=== PATIENT | female | born 1990 | race Caucasian/White ===

== ENCOUNTER 2019-02-20 10:35 | Outpatient (REF) | payer MEDICAID, SELFPAY ==
[2019-02-20 12:04] LABS: HCT 36.2 % (36.0-46.0); HGB 12.1 g/dL (12.0-15.5); Mean Corp. HGB Concentration 33.4 g/dL (32.0-36.0); Mean Corpuscular Hemoglobin 28.1 pg (27.0-33.0); Mean Corpuscular Volume 84.2 fL (80-95); Mean Platelet Volume 10.9 fL (8.0-11.0); Platelet Count 215 x1000/uL (130-400); RBC Distribution Width 11.9 % (11.7-14.6); White Blood Cell Count 5.05 k/cumm (4.4-10.8)
[2019-02-20 12:18] LABS: Anion Gap 7.4 mmol/L (3-11); BUN 14 mg/dL (7-18); CO2 27.6 mmol/L (21.0-32.0); CREATININE 0.72 mg/dL (0.55-1.02); Calcium 9.3 mg/dL (8.5-10.1); Chloride 104 mmol/L (98-107); Glucose 109 mg/dL (70-100); Potassium 4.3 mmol/L (3.5-5.1); Sodium 139 mmol/L (136-145); TSH (W/Ref FT4) 0.01 uIU/mL (0.358-3.74)
[2019-02-20 12:38] LABS: FREE T4 4.08 ng/dL (0.76-1.46)
[2019-02-21 16:32] LABS: Thyroglobulin Antibody 100 U/mL (<61); Thyroperoxidase Antibody 1025 U/mL (<61)
== END 2019-02-20 10:55 ==
LOC: NCHCN 10:35
PROVIDERS: PCP Nurse Practitioner Family; Visit Provider Nurse Practitioner Family
DX: R53.83 Other fatigue (principal)
CPT/HCPCS: 80048; 85027; 86376; 84439; 84443

== ENCOUNTER 2019-03-14 16:17 | Outpatient (REF) | payer MEDICAID, SELFPAY ==
[2019-03-14 22:08] LABS: T4 5.5 ug/dL (4.5-12.5); TSH (W/Ref FT4) 0.01 uIU/mL (0.358-3.74)
[2019-03-14 22:47] LABS: FREE T4 1.09 ng/dL (0.76-1.46)
[2019-03-15 17:10] LABS: T3, Total 111 ng/dl (97-169)
== END 2019-03-14 16:37 ==
LOC: NCHCN 16:17
PROVIDERS: PCP Nurse Practitioner Family; Visit Provider Nurse Practitioner Family
DX: E05.90 Thyrotoxicosis, unspecified without thyrotoxic crisis or storm (principal)
CPT/HCPCS: 84436; 84439; 84443; 84480

== ENCOUNTER 2019-04-10 21:53 | Outpatient (REF) | payer MEDICAID, SELFPAY ==
[2019-04-10 21:56] LABS: T4 1.4 ug/dL (4.5-12.5); TSH (W/Ref FT4) 33.47 uIU/mL (0.358-3.74)
[2019-04-10 22:21] LABS: FREE T4 0.52 ng/dL (0.76-1.46)
[2019-04-11 17:13] LABS: T3, Total 98 ng/dl (97-169)
== END 2019-04-10 22:13 ==
LOC: NCHCN 21:53
PROVIDERS: PCP Nurse Practitioner Family; Visit Provider Nurse Practitioner Family
DX: E05.90 Thyrotoxicosis, unspecified without thyrotoxic crisis or storm (principal)
CPT/HCPCS: 84436; 84439; 84443; 84480

== ENCOUNTER 2019-05-09 18:55 | Outpatient (REF) | payer MEDICAID, SELFPAY ==
[2019-05-09 21:45] LABS: TSH (W/Ref FT4) 11.47 uIU/mL (0.36-3.74)
[2019-05-09 23:00] LABS: FREE T4 0.81 ng/dL (0.76-1.46)
== END 2019-05-09 19:15 ==
LOC: NCHCN 18:55
PROVIDERS: PCP Nurse Practitioner Family; Visit Provider Nurse Practitioner Family
DX: E05.90 Thyrotoxicosis, unspecified without thyrotoxic crisis or storm (principal)
CPT/HCPCS: 84439; 84443

== ENCOUNTER 2019-06-28 16:31 | Outpatient (REF) | payer BC, SELFPAY ==
[2019-06-28 21:07] LABS: TSH 3.89 uIU/mL (0.36-3.74)
[2019-07-01 07:32] LABS: Vitamin D 25 Total 21.2 ng/ml (30-100)
== END 2019-06-28 16:51 ==
LOC: NCHCN 16:31
PROVIDERS: PCP Nurse Practitioner Family; Visit Provider Nurse Practitioner Family
DX: E05.90 Thyrotoxicosis, unspecified without thyrotoxic crisis or storm (principal); R53.83 Other fatigue
CPT/HCPCS: 82306; 84443

== ENCOUNTER 2020-02-25 17:53 | Outpatient (REF) | payer BC, SELFPAY ==
[2020-02-25 20:50] LABS: FREE T4 0.97 ng/dL (0.76-1.46); TSH 5.69 uIU/mL (0.36-3.74)
[2020-02-26 18:04] LABS: T3, Total 104 ng/dL (97-169)
[2020-02-27 06:25] LABS: Vitamin D 25 Total 22.2 ng/ml (30-100)
== END 2020-02-25 18:13 ==
LOC: NCHCN 17:53
PROVIDERS: PCP Nurse Practitioner Family; Visit Provider Nurse Practitioner Family
DX: E05.90 Thyrotoxicosis, unspecified without thyrotoxic crisis or storm (principal); R53.83 Other fatigue
CPT/HCPCS: 82306; 84439; 84443; 84480

== ENCOUNTER 2020-08-25 16:31 | Outpatient (REF) | payer BC, SELFPAY ==
[2020-08-25 22:37] LABS: FREE T4 1.18 ng/dL (0.76-1.46); TSH 2.88 uIU/mL (0.36-3.74)
[2020-08-26 16:58] LABS: T3, Total 117 ng/dL (97-169)
[2020-08-27 04:45] LABS: Vitamin D 25 Total 22.5 ng/ml (30-100)
== END 2020-08-25 16:51 ==
LOC: NCHCN 16:31
PROVIDERS: PCP Nurse Practitioner Family; Visit Provider Nurse Practitioner Family
DX: E05.90 Thyrotoxicosis, unspecified without thyrotoxic crisis or storm (principal)
CPT/HCPCS: 82306; 84439; 84443; 84480

== ENCOUNTER 2022-04-21 12:13 | Emergency (ER) | payer BC, SELFPAY ==
[2022-04-21 12:20] VITALS: BP 133/74; PULSE 79; RESP 18; O2SAT 100
[2022-04-21] MEDS: Ibuprofen 600 MG TAB PO (12:55)
--- NOTE | 2022-04-21 13:05 | DI.RAD_ITS ---
Exam(s) XR KNEE LT 3V AP,LAT,JOSY EXAM: XR KNEE LT 3V AP,LAT,JOSY CLINICAL HISTORY: left knee pain. TECHNIQUE: 2D digital imaging was performed of the left knee. Three images were obtained. AP, late ral and PA tunnel views were obtained. COMPARISON: No exams were available for comparison FINDINGS: BONES: No acute fracture is present. No bony destructive lesion is seen. JOINTS: The knee is normally aligned. No joint effusion is seen. SOFT TISSUE: Normal. IMPRESSION: Normal radiographs of the left knee. DATA REPOSITORY: RADIATION DOSE DELIVERED:
--- NOTE | 2022-04-21 13:05 | DI.RAD_ITS ---
Exam(s) XR ANKLE LT COMPLETE EXAM: XR ANKLE LT COMPLETE CLINICAL HISTORY: twisted ankle/pain/swell TECHNIQUE: 2D digital imaging was performed of the left ankle. Three images were obtained. AP, lat eral and oblique views were obtained. COMPARISON: No exams were available for comparison FINDINGS: BONES: No acute fracture is present. No bony destructive lesion is seen. JOINTS:The ankle mortise is normally aligned. SOFT TISSUE: Soft tissue swelling about the ankle laterally. IMPRESSION: 1. Lateral soft tissue swelling. 2. No acute fracture or dislocation. DATA REPOSITORY: RADIATION DOSE DELIVERED:
--- NOTE | 2022-04-21 13:44 | ED.GENADUL_ITS ---
Discharge Plan Disposition Patient Disposition: HOME Condition: Stable Discharge Details Clinical Impression: Right ankle strain Primary Care Provider: Kristina Zurita ED Provider: Mary Sorenson Home Meds and New Rx's Prescriptions: Continued levothyroxine 50 mcg tablet 1 tab PO DAILY Label Comments: TAKE ONE TABLET BY MOUTH EVERY DAY Discharge Instructions Additional Instructions: Take ibuprofen and Tylenol as needed for pain Use boot as needed for support Repeat x-ray in 1 week with persistent pain Referrals: Kristina Zurita [Primary Care Provider] - Medical Decision Making Patient appears well X-ray as interpreted by radiology as negative and reviewed by me Placed in the for comfort Repeat films in 1 week for persistent pain recommended Return precautions discussed and patient expressed understanding Medical Records Medical records reviewed: Yes I reviewed the patient's medical records. Lab Data Lab results reviewed: Yes I reviewed the patient's lab results. HPI General Date/Time Provider Initiated Documentation: 04/21/22 12:26 . HPI Narrative: This 32-year-old female presents with left ankle pain after twisting injury. States she has pain with ambulation. She also reports tenderness in the knee after banging it 4 days ago. She denies chance of . She denies any additional complaints at this time. Pain exacerbated with ambulation. Describes sharp pain. Related Data Home Medications Medication Instructions Recorded Confirmed levothyroxine 50 mcg tablet 1 tab PO DAILY 04/21/22 04/21/22 Allergies Allergy/AdvReac Type Severity Reaction Status Date / Time Penicillins Allergy Hives Unverified 04/21/22 12:22 General Stated Complaint: Orthopedic WALE: 4 Review of Systems All systems reviewed & are unremarkable except as noted in HPI and below PFSH All Active Problems (Updated 04/21/22 @ 13:37 by EREN Self) Right ankle strain (Acute) Social History Smoking/Tobacco Use Status: Never Smoking risk assessment performed?: Yes Alcohol Intake: never Drug use: Never Substance use type: does not use Do you feel safe at home: Yes Do you feel safe in your relationship?: Yes Exam Const General: cooperative and comfortable Orientation: alert and oriented x3 Extrem Other: Lateral soft tissue swelling, neurovascularly intact, tenderness to patient's left knee from prior injury, no tib-fib tenderness Neurovascularly intact Course Vital Signs Vital signs: Vital Signs Pulse 79 04/21/22 12:20 Respiratory Rate 18 04/21/22 12:20 Blood Pressure 133/74 04/21/22 12:20 Pulse Oximetry 100 04/21/22 12:20 Pulse 79 04/21/22 12:20 Respiratory Rate 18 04/21/22 12:20 Respiratory Effort Non-Labored 04/21/22 12:23 Blood Pressure 133/74 04/21/22 12:20 Blood Pressure Position Sitting 04/21/22 12:20 Pulse Oximetry 100 04/21/22 12:20 Oxygen Delivery Method Room Air 04/21/22 12:20 Oxygen Flow Rate 0 04/21/22 12:20 Pain Level 5 04/21/22 12:20
== END 2022-04-21 13:48 | disposition home or self-care (01) ==
PROVIDERS: Emergency Provider Physician Assistant; PCP Nurse Practitioner Family
DX: S93.402A Sprain of unspecified ligament of left ankle, initial encounter (principal); X50.1XXA Overexertion from prolonged static or awkward postures, initial encounter
CPT/HCPCS: 73562; 99284; 73610; 99282

== ENCOUNTER 2022-10-25 15:17 | Outpatient (REF) | payer BC, SELFPAY ==
[2022-10-25 14:52] LABS: FREE T4 1.26 ng/dL (0.76-1.46); TSH 4.31 uIU/mL (0.36-3.74)
== END 2022-10-25 15:18 | disposition home or self-care (01) ==
LOC: NCHCN 15:17
PROVIDERS: PCP Nurse Practitioner Family; Visit Provider Nurse Practitioner Family
DX: E06.3 Autoimmune thyroiditis (principal)
CPT/HCPCS: 84439; 84443

== ENCOUNTER 2023-01-31 18:29 | Outpatient (REF) | payer BC, SELFPAY | END 2023-01-31 18:30 | disposition home or self-care (01) | LOC: NCHCN 18:29 | PROVIDERS: PCP Nurse Practitioner Family; Visit Provider Nurse Practitioner Family | DX: E03.9 Hypothyroidism, unspecified (principal) | CPT/HCPCS: 84443 ==

== ENCOUNTER 2024-02-07 08:19 | Outpatient (REF) | payer BC, SELFPAY ==
[2024-02-07 15:00] LABS: TSH (W/Ref FT4) 0.37 uIU/mL (0.36-3.74)
== END 2024-02-07 08:20 | disposition home or self-care (01) ==
LOC: NCHCN 08:19
PROVIDERS: PCP Nurse Practitioner Family; Visit Provider Nurse Practitioner Family
DX: E03.9 Hypothyroidism, unspecified (principal)
CPT/HCPCS: 84443

== ENCOUNTER 2024-05-16 15:13 | Outpatient (REF) | payer BC, SELFPAY ==
--- OUTSIDE RECORDS SUMMARY | 2024-05-16 15:27 | XMS_ITS | Clinical Summary ---
Author Organization [facility] Address [address] [place] [address] Care Team Providers Care Laboratory Miller Name Role Phone Unavailable Primary Care Provider Unavailabl e Social History Tobacco Use Types Packs/Day Years Used Date Smoking Tobacco: Never Assessed Interpersonal Safety Answer Date Record ed Physically Hurt Never 08/18/2020 Verbally Threaten Not on file 08/18/2020 Sex and Gender Information Value Date Recorded Sex Assigned at Not on file Gender Identity Not on file Sexual Orientation Not on file Plan of Treatment Health Maintenance Due Date Last Done Comments Hepatitis C Screen 1990 Hepatitis B Vaccine (1 of 3 - 19+ 3-dose series) 02/06 COVID-19 Vaccine (2022- season) 2023
--- OUTSIDE RECORDS SUMMARY | 2024-05-16 15:27 | XMS_ITS | Continuity of Care Document ---
Author Organization [facility] Address [address] [place] [address] Care Team Providers Care Desizing Machine Offbearer Name Role Phone RAZA MILLS Primary Care Physician Encounter [facility] NBR [id number] Date(s): 03/11/24 - 03/11/24 [facility] [address] [place] [address]- [place] Encounter Diagnosis Encounter for routine gynecological examination with Papanicolaou smear of cervix(Discharge Diagnosis) - 03/11/24 Discharge Disposition: Home or Self Care Attending Physician: Serenity Ng APRN Referring Physician: RAZA MILLS Allergies, Adverse Reactions, Alerts Substance Reaction Severity Status penicillin V potassium Eruption Moderate Activ e Assessment and Plan Extracted from: Title:[facility]-Office Visit Note Author:Serenity Ng APRN Date:03/11/24 1.??Encounter for routine gy necological examination with Papanicolaou smear of cervix??Z01.419 ??1. PAP smear obtained today, I will call her with results.?2. She will return in a year for well woman visit.?? Ordered: Outside Lab Request, 03/11/24 16:11:00 EDT, Stop date 03/11/24 16:11:00 EDT, [facility]-Pap + Pap dependent HPV, Encounter for routine gynecological examination with Papanicolaou smear of cervix ?? Ms. Aguilar is a very pleasant 34 y.o. lady presenting to the clinic today for well woman visit.?? Future Appointments Medications levothyroxine 50 mcg (0.05 mg) oral tablet 50 mcg = 1 tab, Oral, Daily, # 30 tab, 0 Refill(s) Start Date: 1/31/23 Status: Ordered levothyroxine 75 mcg (0.075 mg) oral tablet 75 mcg = 1 tab, Oral, Daily, # 30 tab, 0 Refill(s) Start Date: 03/11/24 Status: Ordered Problem List Condition Confirmation Course Effective Dates Status Health St [facility] Informant Asthma 1 Confirmed Active Hypothyroid Confirmed Active 1as a child Procedures Procedure Date Related Diagnosis Body Site Status Extraction of wisdom teeth Completed Vital Signs Most recent to oldest [Reference Range]: 1 Blood Pressure [90-140/60-90 mmHg] 114/7 2mmHg (03/11/24 3:43 PM) Mean Arterial Pressure, Cuff [65-140 mmH g] 86 mmHg (03/11/24 3:43 PM) Weight 94.1 kg (03/11/24 3:43 PM) Weight Measured (lbs) 207.455 lb (03/11/24 3:43 PM) Weight Dosing 94.100 kg (03/11/24 3:43 PM) Coyote Body Weight Calculated 63.9 kg (03/11/24 3:43 PM) Height 172.72 cm (03/11/24 3:43 PM) Height/Length Measured (inches) 68 inch (03/11/24 3:43 PM) BSA Measured 2.12 m2 (03/11/24 3:43 PM) Body Mass Index 31.54 kg/m2 (03/11/24 3:43 PM) Social History Social History Type Response Smoking Status Smoking tobacco use: Never tobacco user;Never entered on: 03/11/24 Sex Female Physician Outpatient Note * Serenity Ng, ASSET ADMINISTRATOR: PERFORM Event Display: Office Clinic Note Physician Authored Date: [id number] SUKUMAR AGUILAR :1990 Age:34 years Sex:Female Visit Date:03/11/2024 Primary Care Physician: RAZA MILLS 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 Last Pap 01/08/2019-neg, neg HPV. Vasectomy for control. Periods every 28 days, lasting 4 days, normal flow. LMP 03/05/2024. History of Present Illness Ms. Aguilar is a pleasant 34 y.o. lady who presents to the [facility] clinic today for SYSTEM TECHNOLOGIST well woman visit. She was last seen by Adina??Brooke??on 07/21/21 for a well woman visit. Her last PAP was in 2019 and was negative for HPV.? She reports her monthly??cycles are regular, arriving every 28 days with a couple days of heavy flow. Typically her periods last 4-5 days. She describes breast tenderness and mood changes surroundingthe time of her menses. She reports noting some uncomfortableness during sexual intercourse with deep penetration. The??discomfort is position dependent. She thinks its happening when it is close to the start of her menses, but she will keep track. She denies post coital bleeding. Typically, the couple does not need lubrication. She is and the couple is in a monogamous relationship. They depend on vasectomy for contraception.? She reports normal vaginal discharge.? She takes a multi vitamin and an additional Vitamin D supplement. She reports her diet as being fairly healthy. She finds it difficult to get into a routine of regular exercise. 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 She has 2 children and 2 step children that keep her active.? She has a family history of breast cancer with her maternal grandmother the one affected at age 48.She is still alive and doing well. Sukumar tells me today, her pcp recommended first mammography at age 39. She performs monthly self breast exams.? She has a family history of melanoma with her mom being the one affected. Sukumar has full body skin checks every 5 years with dermatology at [facility].? Her paternal grandmother suffered from pancreatic cancer, paternal grandfather had dementia.?? Review of Systems Constitutional:?No??fevers,?No??chills,?No??sweats Eye:?No??recent visual problems ENT:?No??ear pain,?No??nasal congestion,?No??sore throat Respiratory:?No??shortness of breath,?No??cough Cardiovascular:?No??Chest pain,?No??palpitations,?No??syncope Gastrointestinal:?No??nausea,??No??vomiting,?No??diarrhea Genitourinary:?No??hematuria Da/Lymph:?No??bruising tendency,?No??swollen lymph glands Endocrine:?Positive for??hypothyroidism??No??excessive hunger, excessive thirst Musculoskeletal:??No??back pain,??No??neck pain,??No??joint pain,??No??muscle pain,??No??decreased range of motion Integumentary:?No??rash,?No??pruritus,?No??abrasions Neurologic: Alert & oriented X 4 Psychiatric:?No??anxiety,?No??depression Physical Exam Vitals & Measurements BP:??114/72?? HT:??172.72??cm?? WT:??94.1??kg?? BMI:??31.54?? BSA:??2.12?? GENERAL APPEARANCE:??alert and oriented in NAD; appropriate with good affect.??.?? NEURO:??grossly intact.?? HEENT:??NCAT; EOMI.?? NECK:??supple.?? CHEST:??symmetric excursions.?? BREAST:?? Nipples bilaterally appear normal without discharge, no palpable masses; bilateral axillas are free of any worrisome lymphadenopathy.?? ABDOMEN:??soft, NT, ND.?? MUSCULOSKELETAL:??good gait and station.?? EXTREMITIES:??no c/c/e??.?? BACK/SPINE:??no CVAT.?? :??deferred. Vulva:??labia majora??and minora bilaterally are??normal in appearance. Introitus is normal in external appearance without??mass??or atrophy. Bladder: urethra normal, no bladder prolapse Vagina: normal pink rugated mucosa, normal vaginal discharge, adequate pelvic support Cervix: normal appearance, no lesions or lacerations Uterus: normal size, shape, non tender, mobile, no prolapse Adnexa: no masses or tenderness Perineum/Anus: no skin changes or hemorrhoids ?? Assessment/Plan 1.??Encounter for routine gynecological examination with Papanicolaou smear of cervix??Z01.419 ??1. PAP smear obtained today, I will call her with results.?2. She will return in a year for well woman visit.?? Ordered: Outside Lab Request, 03/11/24 16:11:00 EDT, Stop date 03/11/24 16:11:00 EDT, [facility]Path-Pap + Pap dependent HPV, Encounter for routine gynecological examination with Papanicolaou smear of cervix ?? Ms. Aguilar is a very pleasant 34 y.o. lady presenting to the clinic today for well woman visit.?? Problem List/Past Medical History Ongoing Asthma Hypothyroid Historical Procedure/Surgical History ???Extraction of wisdom teeth Medications levothyroxine 50 mcg (0.05 mg) oral tablet, 50 mcg= 1 tab, Oral, Daily levothyroxine 75 mcg (0.075 mg) oral tablet, 75 mcg= 1 tab, Oral, Daily Allergies penicillin V potassium??(Eruption) Social History Alcohol Current- Comments: rare Electronic Cigarette/Vaping Electronic Cigarette Use: Never. 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 Home/Environment Lives with Children, Spouse. Living situation: Home/Independent. Sexual Sexually active: Yes. Substance Use Never Tobacco Never tobacco user Tobacco Use:. Never Smokeless Tobacco use:. Family History Alive and well: Father. Alzheimer's disease: Grandfather (P). Breast cancer: Grandmother (M). Cancer: Mother and Grandmother (P). Diabetes mellitus: Grandfather (M). Thyroid dysfunction: Mother. Family Member(s): ?? GPARENT, at age: Unknown. Cause of : Family Member(s): ?? GPARENT, at age: Unknown. Cause of : Electronically Signed on 03/12/2024 06:35 EDT Serenity Ng APRN Patient Care team information Care Team Personnel Name: RAZA MILLS Position: No Access Member Role: Primary Care Physician Address: Address: [place] [id number]- Care Team Related Persons Name: JERZY AGUILAR Address: Home [address], [place] [id number] [facility]
--- OUTSIDE RECORDS SUMMARY | 2024-05-16 15:27 | XMS_ITS | Encounter Summary ---
[place] [address] Care Team Providers Care Making Machine Catcher Name Role Phone Kristina Zurita APRN Primary Care Provider [phone] Reason for Referral * Consultation (Routine) - Closed Specialty Diagnoses / Procedures Referred By Suresh rangel Referred To Contact Dermatology Diagnoses Routine general medical examination at a health care facility Melba Ayala APRN [address] [place] [address] [facility] Dermatology [address] [place] [address] Referral ID Status Reason Start Date Expiration Date V isits Requested Visits Authorized [id number] Closed Consult, Test & Treat PCP Updated and/or Approved 02/02/2023 02/02/2024 6 6 Encounter Details Date Type Department Care Team (Latest Contact Info) Description 02/02/2023 Transcribe Orders eDH Incoming Referrals [phone] Melba Ayala APRN [address] [place], [place] [id number] Routine general medical examination at a health care facility Social History Tobacco Use Types Packs/Day Years Used Date Smoking Tobacco: Never Smokeless Tobacco: Never Sex and Gender Information Value Date Recorded Sex Assigned at Not on file Gender Identity Not on file Sexual Orientation Not on file documented as of this encounter Plan of Treatment Scheduled Referrals Name Type Priority Associated Diagnoses Orde r Schedule Referral to Dermatology Outpatient Referral Routine Routine general medical examination at a health care facility Ordered: 02/02/2023 documented as of this encounter Visit Diagnoses Diagnosis Routine general medical examination at a health care facility documented in this encounter Care Teams Making Machine Catcher Relationship Specialty Start Date End Date Kristina Zurita APRN [address] [place] [address] PCP - General Family Medicine 10/06/17 documented as of this encounter
--- OUTSIDE RECORDS SUMMARY | 2024-05-16 15:27 | XMS_ITS | Encounter Summary ---
Author Organization [facility] [place] [address] Care Team Providers Care Bag Liner Name Role Phone Kristina Zurita APRN Primary Care Provider [phone] Encounter Details Date Type Department Care Team (Late st Contact Info) Description 10/19/2022 3:00 PM EST Office [place] [id number] Gisell Lai MD [facility] [place] [address] Rowena's thyroiditis Social History Tobacco Use Types Packs/Day Years Used Date Smoking Tobacco: Never Smokeless Tobacco: Never Sex and Gender Information Value Date Recorded Sex Assigned at Not on file Gender Identity Not on file Sexual Orientation Not on file documented as of this encounter Last Filed Vital Signs Vital Sign Reading Time Taken Comments Blood Pressure 96/63 10/19/2022 3:18 PM EST Pulse 75 10/19/2022 3:18 PM EST Temperature 36.9 ??C (98.5 ??F) 10/19/2022 3:18 PM ES T Respiratory Rate 20 10/19/2022 3:18 PM EST Oxygen Saturation 98% 10/19/2022 3:18 PM EST Inhaled Oxygen Concentration - - Weight 94.4 kg (208 lb 3.2 oz) 10/19/2022 3:18 P M EST Height 175.3 cm (5' 9) 10/19/2022 3:18 PM EST Body Mass Index 30.75 10/19/2022 3:18 PM EST documented in this encounter Progress Notes * Gisell Lai MD - 10/19/2022 3:00 PM EST Endocrinology Follow up visit Date of Visit: 10/19/22 Patient: Name: Yesenia Aguilar : 1990 Yesenia Aguilar was seen in consultation in the Endocrine clinic at the request of Dr. Kristina Zurita APRN for: hypothyroidism. Patient's previous record as are the lab results are reviewed. HISTORY OF PRESENT ILLNESS: Yesenia Aguilar??is a 32 y/o F??with no significant medical history who was diagnosed with??post thyroiditis in January 2019, was treated with Methimazole for about a month when she became??euthyroid, and medication was discontinued. She was first seen at this office in April of [address] Bauer, TFT??during that visit??revealed hypothyroid state and she was prescribed Levothyroxine 50 mcg. However, she never started taking the medication and repeat TFT in June showed significantly improved TSH (9.98--->3.89) without treatment and it was decided to hold treatment with the Levothyroxine. She had elevated??TPO and TG antibodies??on initial??work up. During her follow up appointmentin July 2019 she reported fatigue and hair loss, TSH was mildly elevated. Due to positive TPO and TG antibodies, she was started her on Levothyroxine 25 mcg daily. I then saw her for the first time in 07/2021, and at that time labs showed elevated TSH despite free T4 at the normal range. I incre ased the Levothyroxine dose from 25mcg daily to 50mcg daily. Interim events: Today she reports she is not feeling so well. She is not feeling like herself for the past few months, and her mood is out of control. She complaints of fatigue and has a difficult time falling asleep. She is frequently woken up at night by her children. She gained approximately 15lbs within the past year. She denies any appetite changes, but does not feel full after a meal. Denies constipation, diarrhea. Denies dry skin, some hair falling. Denies heart palpitations and tremors. She is compliant with the Levothyroxine 50mcg daily, takes it every morning on an emty stomach and waits hours for breakfast. Misses one or two doses monthly. Menstrual periods are regular, not trying to conceive at this time. Family history is significant for??Rowena thyroiditis in mother.? REVIEW OF SYSTEMS: as per HPI, all other systems reviewed and negative Patient Active Problem List Diagnosis Code ??? Hyperthyroidism E05.90 Family Hx: Hx of pancreatic cancel on paternal grandmother Maternal grandmother with breast cancer Maternal grandfather with cardiac disease Allergies Allergen Reactions ??? Penicillins Current Outpatient Medications on File Prior to Visit Medication Sig Dispense Refill ??? levothyroxine (Synthroid) 50 mcg Tablet TAKE ONE TABLET BY MOUTH EVERY DAY 90 tablet 0 ??? ergocalciferoL, vitamin D2, (vitamin D2) 50,000 unit Capsule Take 1 capsule by mouth once a week. (Patient not taking: Reported on 08/24/2021) 12 capsule 0 ??? cholecalciferol, Vitamin D3, 25 mcg (1,000 unit) Capsule Take 1 capsule by mouth daily. (Patient not taking: Reported on 10/19/2022) 90 capsule 3 No current facility-administered medications on file prior to visit. Social History Socioeconomic History ??? Marital status: Spouse name: Not on file ??? Number of children: Not on file ??? Years of education: Not on file ??? Highest education level: Not on file Occupational History ??? Not on file Tobacco Use ??? Smoking status: Never ??? Smokeless tobacco: Never Vaping Use ??? Vaping Use: Never used Substance and Sexual Activity ??? Alcohol use: Not on file ??? Drug use: Not on file ??? Sexual activity: Not on file Other Topics Concern ??? Not on file Social History Narrative ??? 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 GENERAL: Well nourished, well hydrated, in no distress, oriented x 3 EYES: no thyroid eye signs, JUANCHO NECK: supple, slightly enlarged goiter, no bruit, no tenderness, no adenopathies RS: breathing comfortably in room air ABD: soft, non tender, non distended EXTREMITIES: No clubbing, no edema, no cyanosis, normal nails NEURO: normal strength, no tremor, normal reflexes LABS: Results for YESENIA AGUILAR ( ) as of 08/24/2021 19:00 Ref. Range 08/24/2021 10:55 T3, Total Latest Ref Range: 75 - 170 ng/dL 109 Free T4 Latest Ref Range: 0.93 - 1.70 ng/dL 1.29 TSH Latest Ref Range: 0.27 - 4.20 mcIU/mL 4.70 (H) 08/25/2020 TSH 2.88 FT4 1.18 TT3 117 Vit D: 22.5 DIAGNOSIS: Hypothyroidism, due to Rowena's thyroiditis. PLAN: Patient is symptomatic on the current dose of Levothyroxine 50mcg daily. She reports a 15lbs weightgain within the last year, and I wonder if she needs a higher dose of this medication given the weight gain. Today we will repeat TFTs and adjust Levothyroxine accordingly. I also discussed with patient if she prefers continuing follow up care with her PCP, especially because she needs to travel over 1 hourfor our visits. Patient feels comfortable continuing care with PCP, and knows that she can always come back to this clinic as needed. Her thyroid function should be checked once yearly, with goal to have TSH and free T4 at the normal range. Yesenia will get the labs at her PCP's office. I asked her to have lab results faxed over to us. Thank you for allowing me to participate in the care of this very pleasant patient. Case d/w Dr. Alexis Lai Endocrinology Fellow Pager [phone] cc: Kristina Zurita APRN * Jose Montero MD - 10/19/2022 3:00 PM EST I have reviewed Dr Lai's history and I agree with the details as written. The assessment and plan were formulated in discussion with me and I agree with them as documented. Orders Placed This Encounter Procedures ??? T4, free ??? TSH Jose Montero MD Maintenance Supervisorcable placer Endocrinology Section [facility] documented in this encounter Miscellaneous Notes * Addendum Note - Jose Montero MD - 10/19/2022 3:00 PM ESTAddended by: JOSE MONTERO on: 10/22/2022 04:48 PM Modules accepted: Level of Service documented in this encounter Plan of Treatment Not on file documented as of this encounter Visit Diagnoses Diagnosis Rowena's thyroiditis Chronic lymphocytic thyroiditis documented in this encounter Care Teams Bag Liner Relationship Specialty Start Date End Date Kristina Zurita APRN [address] [place] [address] PCP - General Family Medicine 10/06/17 documented as of this encounter
--- OUTSIDE RECORDS SUMMARY | 2024-05-16 15:27 | XMS_ITS | Clinical Summary ---
[place] [address] Care Team Providers Care Crocodile Farmer Name Role Phone Kristina Zurita APRN Primary Care Provider [phone] [phone] Allergies Active Allergy Reactions Criticality Noted Date Comments Penicillins 04/18/2018 Medications Medication Sig Dispensed Refills Start Date End Date Status cholecalciferol, Vitamin D3, 25 mcg (1,000 unit) CapsuleIndications: Vitamin D deficiency Take 1 capsule by mouth daily. 90 capsule 3 03/05/2020 Active Additional Information Patient not taking.Reported on 10/19/2022 ergocalciferoL, vitamin D2, (vitamin D2) 50,000 unit CapsuleIndications: Vitamin D deficiency Take 1 capsule by mouth once a week. 12 capsule 08/28/2020 Active Additional Information Patient not taking.Reported on 08/24/2021 levothyroxine (Synthroid) 75 mcg TabletIndications:H ashimoto's thyroiditis Take 1 tablet by mouth daily. 90 tablet 3 10/28/2022 Active Active Problems No known active problems Resolved Problems Problem Noted Date Diagnosed Date Resolved Date Hyperthyroidism 05/15/2019 10/22/2022 Social History Tobacco Use Types Packs/Day Years Used Date Smoking Tobacco: Never Smokeless Tobacco: Never Sex and Gender Information Value Date Recorded Sex Assigned at Not on file Gender Identity Not on file Sexual Orientation Not on file Last Filed Vital Signs Vital Sign Reading [...] Mass Index 30.75 10/19/2022 3:18 PM EST Plan of Treatment Health Maintenance Due Date Last Done Comments HIV screen 2009 Hepatitis C Screening 2009 Lipid Screening 2009 Hepatitis B vaccine (0-59 yrs) (1) 2010 Tdap adult 2010 Tetanus vaccine 2010 HPV test 2021 PAP Smear 2021 Covid-19 Vaccine ( - 2022-24 season) 2023 Influenza (Flu) vaccine (1 o f 1 - Influenza standard series) 05/26/2024 Care Teams Crocodile Farmer Relationship Specialty Start Date End Date Kristina Zurita APRN [address] [place] [address] PCP - General Family Medicine 10/06/17
--- OUTSIDE RECORDS SUMMARY | 2024-05-16 15:27 | XMS_ITS | Encounter Summary ---
[place] [address] Care Team Providers Care Field Investigator Name Role Phone Kristina Zurita APRN Primary Care Provider +1 [phone] Encounter Details Date Type Department Care Team (Late st Contact Info) Description 08/24/2021 Telephone [place] [phone] Brooke Headley Social History Tobacco Use Types Packs/Day Years Used Date Smoking Tobacco: Never Smokeless Tobacco: Never Sex and Gender Information Value Date Recorded Sex Assigned at Not on file Gender Identity Not on file Sexual Orientation Not on file documented as of this encounter Miscellaneous Notes * Telephone Encounter - Char Acosta - 08/26/2021 12:12 PM EST Pt calling back about this stating she is returning your call. Please call pt back at [phone] * Telephone Encounter - Brooke Headley - 08/24/2021 3:32 PM EST Patient returning your call. Will keep phone on her [phone] best number to reach her at documented in this encounter Plan of Treatment Not on file documented as of this encounter Visit Diagnoses Not on filedocumented in this encounter Care Teams Field Investigator Relationship Specialty Start Date End Date Kristina Zurita APRN [address] [place] [address] PCP - General Family Medicine 10/06/17 documented as of this encounter
--- OUTSIDE RECORDS SUMMARY | 2024-05-16 15:27 | XMS_ITS | Referral Summary ---
Author Organization [facility] Address [address] [place] [address] Care Team Providers Care Spray Pilot Name Role Phone Unavailable Primary Care Provider [...] Orientation Not on file Plan of Treatment Not on file
--- OUTSIDE RECORDS SUMMARY | 2024-05-16 15:27 | XMS_ITS | Encounter Summary ---
Author Organization [facility]ly [facility] Address [facility] [place] [address] Care Team Providers Care Centrifuge Operator Name Role Phone Kristina Zurita APRN Primary Care Provider [phone] [phone] Reason for Visit * Reason Comments Skin Check * Consultation (Routine) - Closed Specialty Diagnoses / Procedures Referred By Suresh rangel Referred To Contact Dermatology Diagnoses Routine general medical examination at a health care facility Melba Ayala APRN [address] [place] [address] [facility] Dermatology [address] [place] [address] Referral ID Status Reason Start Date Expiration Date V isits Requested Visits Authorized [id number] Closed Consult, Test & Treat PCP Updated and/or Approved 02/02/2023 02/02/2024 6 6 Encounter Details Date Type Department Care Team (Late st Contact Info) Description 05/09/2023 3:40 PM EDT Office Visit Dermatology at [facility] [address] [place] [address] Marni Andersen MD [facility] [address] LYNDA [place] [address] Seborrheic keratoses; Multiple benign melanocytic nevi of upper and lower extremities and trunk; Lentigines; Redmond angioma; Screening for malignant neoplasm of skin Social History Tobacco Use Types Packs/Day Years Used Date Smoking Tobacco: Never Smokeless Tobacco: Never Sex and Gender Information Value Date Recorded Sex Assigned at Not on file Gender Identity Not on file Sexual Orientation Not on file documented as of this encounter Progress Notes * Marni Andersen MD - 05/09/2023 3:40 PM EDT Images from the original note were not included. DEPARTMENT OF DERMATOLOGY Medical Dermatology Clinic Note Provider: Marni Andersen MD Patient's preferred name Yesenia Preferred contact method for results [x]Phone: Cell []myD-H []Letter Detailed phone message OK? Yes Are there any other people with whom we may discuss your care? 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 Patient is referred to the clinic at the request of Melba Ayala for a full skin exam. She notes that she has a fair amount of sun exposure at her job but states that she does the best to wear hats and use sunscreen. To her knowledge she does not have any family history of melanoma. Review of Systems: General: Feeling well. Skin: No other skin concerns. Medications: Reviewed in eD-H Allergies: Reviewed in eD-H Skin Examination: Full skin examination: Patient asked to undress to their comfort level. Verbalized that the provider???s preference is that the patient remove all clothing and that the provider will not examine areas patient elects to keep covered. Patient elects to keep underwear on and have the following examined: scalp, hair, face, ears, neck, chest, axillae, abdomen, back, and upper and lower extremities. Genitalia and buttocks were not examined. Assessment/Plan 1. Seborrheic Keratoses - Stuck on, waxy papules on the trunk and extremities - Benign. No treatment needed. 2. Lentigines - Scattered light-brown, evenly pigmented, well-demarcated macules on sun-exposed areas of the trunk and extremities. - No worrisome pigmented lesions. Discussed benign nature of lesions and provided reassurance. Willcontinue to monitor. 3. Benign Nevi - Scattered light to medium brown macules on the trunk and extremities with reassuring pigment pattern on dermoscopy. - Reassured of benign appearance on exam today. - Advised patient to watch for any new or changing lesions. - Reviewed warning signs of skin cancer. 4. Redmond Angioma(s) - 0.2-0.4cm bright red, well-demarcated papule(s). - Benign. No treatment needed. Other: Sun protection discussed (protective clothing and SPF30+ broad-spectrum sunscreen) RTC: 2 years for FSE []Note routed to marketing secretary [x]Recall placed in scheduling system []Appointment scheduled at checkout Scribe attestation: Lydia Senior [facility] has performed the documentation for this encounter in the presence of and acting as a scribe for Marni Andersen MD. I performed the above scribed service and agree with the accuracy of the documentation in this encounter. Reviewed and signed by: Marni Andersen MD Dermatology [facility] Patient seen and evaluated with staff lithopone charger: Nancy Francisco MD Department of Dermatology [facility] * Nancy Francisco MD - 05/09/2023 3:40 PM EDT I was the supervising physician working with dermatology resident Dr. Andersen in the dermatology clinic during this patient visit. The level of resident supervision for this patient visit was indirect supervision with direct supervision immediately available. (definition: [facility] Policy Statement on Graduate Medical Education, Supervision of Graduate Medical Trainees) I was immediately available to Dr. Andersen for questions and discussion regarding this visit. I have reviewed the encounter note details and level of service. NANCY FRANCISCO MD Staff Physician documented in this encounter Plan of Treatment Scheduled Referrals Name Type Priority Associated Diagnoses Orde r Schedule Referral to Dermatology Outpatient Referral Routine Routine general medical examination at a [facility] facility Ordered: 02/02/2023 documented as of this encounter Visit Diagnoses Diagnosis Seborrheic keratoses Multiple benign melanocytic nevi of upper and lower extremities and trunk Lentigines Other dyschromia Redmond angioma Nevus, non-neoplastic Screening for malignant neoplasm of skin Screening for malignant neoplasm of the skin documented in this encounter Care Teams Centrifuge Operator Relationship Specialty Start Date End Date Kristina Zurita APRN [address] [place] [address] PCP - General Family Medicine 10/06/17 documented as of this encounter
--- OUTSIDE RECORDS SUMMARY | 2024-05-16 15:27 | XMS_ITS | Encounter Summary ---
[place] [address] Care Team Providers Care Recreation Specialist Name Role Phone Kristina Zurita APRN Primary Care Provider [phone] [phone] Encounter Details Date Type Department Care Team (Late st Contact Info) Description 10/28/2022 Orders [place] [address] Gisell Lai MD [facility] [place] [address] Rowena's thyroiditis Social History Tobacco Use Types Packs/Day Years Used Date Smoking Tobacco: Never Smokeless Tobacco: Never Sex and Gender Information Value Date Recorded Sex Assigned at Not on file Gender Identity Not on file Sexual Orientation Not on file documented as of this encounter Plan of Treatment Not on file documented as of this encounter Visit Diagnoses Diagnosis Rowena's thyroiditis Chronic lymphocytic thyroiditis documented in this encounter Care Teams Recreation Specialist Relationship Specialty Start Date End Date Kristina Zurita APRN [address] [place] [address] PCP - General Family Medicine 10/06/17 documented as of this encounter
--- OUTSIDE RECORDS SUMMARY | 2024-05-16 15:27 | XMS_ITS | Encounter Summary ---
[place] [address] Care Team Providers Care Senior Windows Engineer Name Role Phone Kristina Zurita APRN Primary Care Provider [phone] [phone] Encounter Details Date Type Department Care Team (Latest Contact Info) Description 05/09/2023 Travel Social History Tobacco Use Types Packs/Day Years [...] on filedocumented in this encounter Care Teams Senior Windows Engineer Relationship Specialty Start Date End Date Kristina Zurita APRN [address] [place] [address] PCP - General Family Medicine 10/06/17 documented as of this encounter
--- OUTSIDE RECORDS SUMMARY | 2024-05-16 15:27 | XMS_ITS | Encounter Summary ---
[facility] [place] [address] Care Team Providers Care Dimension Mill Worker Name Role Phone Kristina Zurita APRN Primary Care Provider [phone] [phone] Encounter Details Date Type Department Care Team (Late st Contact Info) Description 08/30/2021 Orders Only [place] [address] Gisell Lai MD [facility] [place] [address] Rowena's thyroiditis Social History Tobacco Use Types [...] thyroiditis documented in this encounter Care Teams Dimension Mill Worker Relationship Specialty Start Date End Date Kristina Zurita APRN [address] [place] [address] PCP - General Family Medicine 10/06/17 documented as of this encounter
--- OUTSIDE RECORDS SUMMARY | 2024-05-16 15:27 | XMS_ITS | Encounter Summary ---
Author Organization [facility] Address [address] [place] [address] Care Team Providers Care Audit Senior Associate Name Role Phone Unavailable Primary Care Provider Unavailabl e Encounter Details Date Type Department Care Team (Late st Contact Info) Description 08/26/2020 Lab Requisition [facility] Pathology & Laboratory Medicine - [address] [address] Outr Resulting Lab, Provider Social History Tobacco Use Types Packs/Day Years [...] on file documented as of this encounter Procedures Procedure Name Priority Date/Time Associated Diagnosis Comments T3, TOTAL Routine 08/25/2020 16:05 EST documented in this encounter Results * T3, TOTAL (08/25/2020 16:05 EST) T3, Total 117 97 - 169 ng/dL 08/26/2020 16:[address] [facility] Blood VENOUS BLOOD / Unknown 08/25/2020 16:05 EST 08/26/2020 16:05 EST Provider Outr Resulting Lab CHEMISTRY & BLOOD GAS ORDERABLES [facility] [address] [place] [address] documented in this encounter Visit Diagnoses Not on filedocumented in this encounter
--- OUTSIDE RECORDS SUMMARY | 2024-05-16 15:27 | XMS_ITS | Encounter Summary ---
[place] [address] Care Team Providers Care Vp Business Development Name Role Phone Kristina Zurita APRN Primary Care Provider [phone] [phone] Encounter Details Date Type Department Care Team (Latest Contact Info) Description 10/19/2022 Travel Social History Tobacco Use Types Packs/Day [...] on filedocumented in this encounter Care Teams Vp Business Development Relationship Specialty Start Date End Date Kristina Zurita APRN [address] [place] [address] PCP - General Family Medicine 10/06/17 documented as of this encounter
--- OUTSIDE RECORDS SUMMARY | 2024-05-16 15:27 | XMS_ITS | Continuity of Care Document ---
Author Organization [facility] Occupationa l Health Address [address] [place] [address] Encounter [facility] NBR [id number] Date(s): 10/25/22 - 10/25/22 [facility] Occupational Health [address] [place] [address]- Encounter Diagnosis Encounter for examination required by Department of Transportation (DOT) (Discharge Diagnosis) - 10/25/22 Discharge Disposition: Home or Self Care Attending Physician: Nain Merrill. EREN Allergies, Adverse Reactions, Alerts Substance Reaction Severity Status penicillin Unknown Active Functional Status 10/25/22 Other exposure to Infectious Disease Non e Medications levothyroxine 50 mcg (0.05 mg) oral tablet 50 mcg = 1 tab, Oral, Daily, # 30 tab, 0 Refill(s) Start Date: 10/25/22 Status: Ordered Problem List Condition Confirmation Course Effective Dates Status Health St atus Informant Hypothyroid Confirmed Active Vital Signs Most recent to oldest [Reference Range]: 1 Peripheral Pulse Rate [60-100 bpm] 86 bp m (10/25/22 3:10 PM) Blood Pressure [90-140/60-90 mmHg] 140/6 0mmHg (10/25/22 3:10 PM) Weight 95.25 kg (10/25/22 3:10 PM) Weight Measured (lbs) 209.99 lb (10/25/22 3:10 PM) Height 175.26 cm (10/25/22 3:10 PM) Height/Length Measured (inches) 69 inch (10/25/22 3:10 PM) BSA Measured 2.15 m2 (10/25/22 3:10 PM) Body Mass Index 31.01 kg/m2 (10/25/22 3:10 PM) Social History Social History Type Response Tobacco Never tobacco user T obacco Use:. Sex Physician Outpatient Note * Nain Merrill. PA: PERFORM Event Display: Office Clinic Note Physician Authored Date: [id number] SUKUMAR FERNANDEZ :1990 Age:32 years Sex:Female Visit Date:10/25/2022 Chief Complaint dot ppx Physical Exam Vitals & Measurements HR:??86??(Peripheral)?? BP:??140/60?? SpO2:??100%?? HT:??175.26??cm?? WT:??95.25??kg?? BMI:??31.01?? BSA:??2.15?? 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 ??Recheck 2 years. Problem List/Past Medical History Ongoing Hypothyroid Historical No qualifying data Medications levothyroxine 50 mcg (0.05 mg) oral tablet, 50 mcg= 1 tab, Oral, Daily Allergies penicillin Social History Electronic Cigarette/Vaping Electronic Cigarette Use: Never. Tobacco Never tobacco user Tobacco Use:. Electronically Signed on 10/25/22 03:26 PM Nain JASON
--- OUTSIDE RECORDS SUMMARY | 2024-05-16 15:27 | XMS_ITS | Encounter Summary ---
Author Organization [facility] [place] [address] Care Team Providers Care Stunt Man Name Role Phone Kristina Zurita APRN Primary Care Provider [phone] [phone] Reason for Visit * Reason Comments Medication Refill Encounter Details Date Type Department Care Team (Late st Contact Info) Description 09/09/2022 [place] [address] [facility] [place] [address] Rowena's thyroiditis Social History Tobacco Use Types Packs/Day Years Used Date Smoking Tobacco: Never Smokeless Tobacco: Never Sex and Gender Information Value Date Recorded Sex Assigned at Not on file Gender Identity Not on file Sexual Orientation Not on file documented as of this encounter Miscellaneous Notes * Telephone Encounter - Сергей Mejia RN - 09/09/2022 8:31 AM EST [facility] message sent to patient regarding need for follow up. documented in this encounter Plan of Treatment Not on file documented as of this encounter Visit Diagnoses Diagnosis Rowena's thyroiditis Chronic lymphocytic thyroiditis documented in this encounter Care Teams Stunt Man Relationship Specialty Start Date End Date Kristina Zurita APRN [address] [place] [address] PCP - General Family Medicine 10/06/17 documented as of this encounter
--- OUTSIDE RECORDS SUMMARY | 2024-05-16 15:27 | XMS_ITS | Encounter Summary ---
Author Organization [facility] Address [address] [place] [address] Care Team Providers Care Costumed Character Name Role Phone Unavailable Primary Care Provider Unavailabl e Encounter Details Date Type Department Care Team (Late st Contact Info) Description 02/26/2020 Lab Requisition [facility] Pathology & Laboratory Medicine - [facility] [address] [place] [address] Outr Resulting Lab, Provider Social History Tobacco Use Types Packs/Day Years Used Date Smoking Tobacco: Never Assessed Sex and Gender Information Value Date Recorded Sex Assigned at Not on file Gender Identity Not on file Sexual Orientation Not on file documented as of this encounter Plan of Treatment Not on file documented as of this encounter Procedures Procedure Name Priority Date/Time Associated Diagnosis Comments T3, TOTAL Routine 02/25/2020 16:20 EDT documented in this encounter Results * T3, TOTAL (02/25/2020 16:20 EDT) T3, Total 104 97 - 169 ng/dL 02/26/2020 18:00 EDT [facility] Blood VENOUS BLOOD / Unknown 02/25/2020 16:20 EDT 02/26/2020 17:18 EDT Provider Outr Resulting Lab CHEMISTRY & BLOOD GAS ORDERABLES [facility] [address] [place] [address] documented in this encounter Visit Diagnoses Not on filedocumented in this encounter
--- OUTSIDE RECORDS SUMMARY | 2024-05-16 15:28 | XMS_ITS | Encounter Summary ---
[place] [address] Care Team Providers Care Distillery Manager Name Role Phone Kristina Zurita APRN Primary Care Provider [phone] [phone] Encounter Details Date Type Department Care Team (Late st Contact Info) Description 2020 Telephone [place] [id number] Funmilayo Burkett [facility] Social History Tobacco Use Types Packs/Day Years Used Date Smoking Tobacco: Never Smokeless Tobacco: Never Sex and Gender Information Value Date Recorded Sex Assigned at Not on file Gender Identity Not on file Sexual Orientation Not on file documented as of this encounter Miscellaneous Notes * Telephone Encounter - Funmilayo Burkett RMA - 2020 11:19 AM EDT [facility] Pre-Telemedicine Phone Note [] Patient not reached [x] Patient reached and the following information was reviewed/obtained per protocol: [x] Confirmed patient name and date of [] Confirmed telemedicine katia (Vidyo and Virtual Visit) is downloaded and functioning [x] Confirmed location of patient - TeleVisit is taking place in [x] [place] [] [place] [] If not on [facility], working on signing up for [facility] [] Confirmed has completed any pre-visit questionnaires [] If has not received required pre-visit questionnaires, send via [facility] [x] Reviewed patient medications [x] Documented self-reported vitals: [x] Weight: 170lbs Height 59 [] pulse recorded: [x] Other information or concerns Pt is going to set up telehealth this afternoon documented in this encounter Plan of Treatment Not on file documented as of this encounter Visit Diagnoses Not on filedocumented in this encounter Care Teams Distillery Manager Relationship Specialty Start Date End Date Kristina Zurita APRN [address] [place] [address] PCP - General Family Medicine 10/06/17 documented as of this encounter
--- OUTSIDE RECORDS SUMMARY | 2024-05-16 15:28 | XMS_ITS | Encounter Summary ---
Author Organization [facility] [place] [address] Care Team Providers Care Head Sawyer Automatic Name Role Phone Kristina Zurita APRN Primary Care Provider [phone] Reason for Visit * Reason Comments Establish Care * Consultation (Routine) - Closed Specialty Diagnoses / Procedures Referred By Suresh t Referred To Contact Endocrinology Diagnoses hyperthyroid Melba Ayala APRN [address] [place] [address] [facility] [address] [place] [phone] Referral ID Status Reason Start Date Expiration Date V isits Requested Visits Authorized [id number] Closed Consult, Test & Treat [facility] 03/05/2019 03/04/2020 1 1 Encounter Details Date Type Department Care Team (Late st Contact Info) Description 05/15/2019 8:30 AM EDT Office Visit [place] [address] Jalen Sheffield MD [facility] [place] [address] Ezequiel Bauer MD [facility] [place] [address] Hyperthyroidism; Rowena's thyroiditis; Vitamin D deficiency Social History Tobacco Use Types Packs/Day Years Used Date Smoking Tobacco: Never Smokeless Tobacco: Never Sex and Gender Information Value Date Recorded Sex Assigned at Not on file Gender Identity Not on file Sexual Orientation Not on file documented as of this encounter Last Filed Vital Signs Vital Sign Reading Time Taken Comments Blood Pressure 120/62 05/15/2019 8:33 AM EDT Pulse 70 05/15/2019 8:33 AM EDT Temperature - - Respiratory Rate - - Oxygen Saturation 100% 05/15/2019 8:33 AM EDT Inhaled Oxygen Concentration - - Weight 82.6 kg (182 lb 3.2 oz) 05/15/2019 8:33 A M EDT Height 175.3 cm (5' 9) 05/15/2019 8:33 AM EDT Body Mass Index 26.91 05/15/2019 8:33 AM EDT documented in this encounter Progress Notes * Ezequiel Bauer MD - 05/15/2019 8:30 AM EDT Images from the original note were not included. Endocrine Consult Date: 05/14/19 Patient Name: Yesenia Aguilar Date of : 1990 PCP: Kristina Zurita APRN Reason for referral: Hyperthyroidism History of Present Illness: Ms. Yesenia Aguilar is a 29 y/o F, with recently diagnosed Hyperthyroidism in Jan, 2019 . She has noother significant medical history. She was 12 weeks when she developed severe fatigue, hair loss, anxiety, palpitations and heat intolerance. Blood work revealed hyperthyroidism and was started on methimazole 5 mg daily in February,. She took it for about a month and stopped taking whenshe was told her repeat blood work revealed Euthyroid? She is currently breast feeding, feels a lot betrer, but still has hair loss and fatigue. She denies any other symptoms of hyper or hypothyroidism. She denies excessive iodine intake or recent iodine contrast administration and was not taking medication that will cause hyperthyroid. She has a FH of Rowena thyroiditis in mother. No FH of Thyroid cancer. ROS: Irritability/nervousness: yes. Muscle weakness/tremors: no Weight loss: no Sleep disturbances: no Vision/eye problems: no Heat sensitivity: no Increased appetite: no Clammy skin: no Palpitations: no Fatigue: yes Constipation: yes Hoarse voice: no Globus sensation: no Difficulty swallowing: no Difficulty breathing: no Recent labs (February,): TSH: 0.01 uIU/ml (0.358-3.74) FT4: 4.08 ng/dl (0.76-1.46) Thyroglobulin Ab: 100 u/ml (<61) TPO Ab: 1025 u/ml (<61) Allergies Allergen Reactions ??? Penicillins No current outpatient medications on file prior to visit. No current facility-administered medications on file prior to visit. Social History Socioeconomic History ??? Marital status: Spouse name: Not on file ??? Number of children: Not on file ??? Years of education: Not on file ??? Highest education level: Not on file Occupational History ??? Not on file Social Needs ??? Financial resource strain: Not on file ??? Food insecurity: Worry: Not on file Inability: Not on file ??? Transportation needs: Medical: Not on file Non-medical: Not on file Tobacco Use ??? Smoking status: Never Smoker ??? Smokeless tobacco: Never Used Substance and Sexual Activity ??? Alcohol use: Not on file ??? Drug use: Not on file ??? Sexual activity: Not on file Lifestyle ??? Physical activity: Days per week: Not on file Minutes per session: Not on file ??? Stress: Not on file Relationships ??? Social connections: Talks on phone: Not on file Gets together: Not on file Attends moravian service: Not on file Active member of club or organization: Not on file Attends meetings of clubs or organizations: Not on file Relationship status: Not on file ??? Intimate partner violence: Fear of current or ex partner: Not on file Emotionally abused: Not on file Physically abused: Not on file Forced sexual activity: Not on file Other Topics Concern ??? Not on file Social History Narrative ??? Not on file PHYSICAL EXAM: BP 120/62 (BP Location (NBP): Left arm, Patient Position: Sitting, BP Cuff Sizes: Adult (25-34 cm)) Pulse 70 Ht 175.3 cm (5' 9) Wt 82.6 kg (182 lb 3.2 oz) SpO2 100% BMI 26.91 kg/m?? GENERAL: Well nourished, well hydrated, in no distress, oriented x 3 SKIN: normal in texture and temperature EYES: no thyroid eye signs, JUANCHO, cornea normal NECK: supple, no palpable nodule or goiter, no bruit, no tenderness, no adenopathies CVS: S1 S2 heard, rhythm regular RS: clear breath sounds bilateral ABD: soft, BS heard, no organomegaly EXTREMITIES: No clubbing, no edema, no cyanosis, normal nails. No tremor on out- stretched hands. NEURO: normal strength, brisk reflexes Physician: Ezequiel Bauer MD/Dr. Sheffield Name: Yesenia Aguilar : 1990 Date: 05/15/19 Indication for exam: Thyroiditis Thyroid measurements All measurement are expressed as longitudinal X AP X transverse Right lobe 3.8 cm Longitudinal 1.4 cm Depth (AP) 1.8 cm Transverse ___xxx__ Normal echotexture heterogenous _ vascularity ___Mild ___ hypervascular hypovascular Isthmus 0.7 cm AP deep Left lobe 4.5 cm Longitudinal 1.7 cm Depth (AP) 2.0 cm Transverse ___xxx__ Normal echotexture _ heterogenous __ Normal vascularity ___Mild___ hypervascular ____ hypovascular Nodules Right lobe None Left lobe ____ None Lymph nodes None Diagnostic impression: No nodules or cysts, mild hypervascularity, normal echogenicity on both lobes of Thyroid. Assessment: Ms. Yesenia Aguilar is a 29 y/o F with Post Thyroiditis. She was Hyperthyroid, treated with Methimazole for about a month and she is now hypothyroid. # Post Thyroiditis, now Hypothyroid. # Rowena Thyroiditis Recommendations: 1. Medication: Start Levothyroxine 50 mcg per day. Take the medication on empty stomach, at least 1hour before breakfast. If you take any calcium or iron or vitamin D or proton pump inhibitors or multivitamins or mineral supplements, please make sure to give a time gap of 3-4 hours from Levothyroxine to allow for full absorption of Levothyroxine. 2. Start Vitamin D 2000 units once daily. 3. Repeat TSH and Vitamin D levels in 6 weeks. Patient was advised of proper dosage, how to take the medication properly, precautions, and potential complication of the medication prescribed. Patient will continue all other medications, healthy diet and execise regularly. Thank you for allowing me to participate in the care of this patient. D/W Dr. Yohannes Bauer PGY4 Fellow, Endocrinology, Diabetes and Metabolism. Pager: [phone] * Ezequiel Bauer MD - 05/15/2019 8:30 AM EDT In Office Thyroid Ultrasound Physician: Ezequiel Bauer MD/Dr. Sheffield Name: Yesenia Aguilar : 1990 Date: 05/15/19 Indication for exam: Thyroiditis Thyroid measurements All measurement are expressed as longitudinal X AP X transverse Right lobe 3.8 cm Longitudinal 1.4 cm Depth (AP) 1.8 cm Transverse ___XXX_ Normal echotexture heterogenous _ vascularity ___Mild ___ hypervascular hypovascular Isthmus 0.7 cm AP deep Left lobe 4.5 cm Longitudinal 1.7 cm Depth (AP) 2.0 cm Transverse ___XXX__ Normal echotexture _ heterogenous __ Normal vascularity ___Mild___ hypervascular ____ hypovascular Nodules Right lobe None Left lobe ____ None Lymph nodes None Diagnostic impression: No nodules or cysts, mild hypervascularity, normal echogenicity on both lobes of Thyroid. Recommendations: Repeat TFT in 6 weeks. * Jalen Sheffield MD - 05/15/2019 8:30 AM EDT I have seen the patient and reviewed Dr. Bauer's above history and I agree with the details as written. The assessment and plan were formulated in discussion with me and I agree with them as documented. I also directly supervised thyroid US and agree with the findings as written. Jalen Sheffield MD, PhD, FACP, FACE documented in this encounter Plan of Treatment Not on file documented as of this encounter Procedures Procedure Name Priority Date/Time Associated Diagnosis Comments HEMOGRAM Routine 05/15/2019 9:57 AM EDT Hyperthyroidism DIFFERENTIAL, AUTOMATED Routine 05/15/2019 9:57 AM EDT Hyperthyroidism HC VITAMIN D TOTAL-25 HYDROXY Routine 05/15/2019 9:57 AM EDT Hyperthyroidism HC CBC,PLT & AUTO DIFF Routine 9 9:57 AM EDT Hyperthyroidism HC TOTAL T3 Routine 05/15/2019 9:57 AM EDT Hyperthyroidism HC THYROID STIMULATING HORMONE, SERUM Routine 05/15/2019 9:57 AM EDT Hyperthyroidism HC FREE THYROXINE (T4) Routine 9 9:57 AM EDT Hyperthyroidism HC VENIPUNCTURE Routine 05/15/2019 9:57 AM EDT Hyperthyroidism COMPREHENSIVE METABOLIC PANEL Routine 05/15/2019 9:57 AM EDT Hyperthyroidism documented in this encounter Results * Differential, Automated (05/15/2019 9:57 AM EDT) Neutrophil % 50.2 % [facility] Neutrophil Absolute 2.91 1.70 - 6.10 x10(3)/[facility] Lymph % 34.8 % [facility] Lymphocytes Abs 2.0 0.9 - 3.2 x10(3)/[facility] Monocyte % 11.0 % [facility] Monocyte Abs 0.6 0.3 - 0.9 x10(3)/[facility] Eos % 2.9 % [facility] Eosinophils Abs 0.2 0.0 - 0.4 x10(3)/[facility] Basophil % 0.9 % [facility] Baso Absolute 0.0 0.0 - 0.1 x10(3)/[facility] Immature Gran % 0.20 % [facility] Comment: Immature granulocytes(IG's)percentage and absolute count will include metamyelocytes, myelocytes, and promyelocytes. Blood smears from CBCs yielding IG's will be scanned manually for concordance. If this scan disagrees with the automated IG or if promyelocytes are noted, a manual differential will be performed. Immature Gran Absolute 0.01 0.00 - 0.04 x10(3)/[facility] Blood specimen (specimen) 05/15/2019 9:57 AM EDT 05/15/2019 10:07 AM EDT Narrative Resulting Agency Comment Spec In Lab Ezequiel Bauer MD HEMATOLOGY ORDERABLE S [facility] [place] [address] * Hemogram (05/15/2019 9:57 AM EDT) White Blood Cell 5.8 4.0 - 9.5 x10(3)/[facility] Red Blood Cell 4.56 4.00 - 5.21 x10(6)/[facility] Hemoglobin 12.9 11.7 - 15.5 gm/dL [facility] Hematocrit 38.6 35.7 - 45.8 % [facility] Mean Cell Volume 84.6 82.6 - 94.4 fL [facility] Mean Cell Hemoglobin 28.3 27.1 - 32.0 pg [facility] Mean Cell Hemoglobin Concentration 33.4 31.7 - 35.0 gm/dL [facility] Platelet 236 145 - 357 x10(3)/[facility] RDW Standard Deviation 43.4 37.0 - 46.0 fL [facility] RDW coefficient of variation 14.0 11.5 - 14.1 % [facility] Mean Platelet Volume 10.8 7.6 - 12.9 fL [facility] NRBC% auto 0.0 % [facility] NRBC Absolute 0.000 0.000 - 0.000 x10(3)/mcL [facility] Blood specimen (specimen) 05/15/2019 9:57 AM EDT 05/15/2019 10:07 AM EDT Narrative Resulting Agency Comment Spec In Lab Ezequiel Bauer MD HEMATOLOGY ORDERABLE S Performing Organization Address City/[facility]/ZIP Co de Phone Number [facility] [place] [address] * Vitamin B12 (05/15/2019 9:57 AM EDT) Vitamin B12 362 232 - 1,245 pg/mL [facility] Blood specimen (specimen) 05/15/2019 9:57 AM EDT 05/15/2019 10:07 AM EDT Narrative Resulting Agency Comment Spec In Lab Jalen Sheffield MD CHEMISTRY ORDERAB LES Performing Organization Address [facility] Co de Phone Number [facility] [place] [address] * (ABNORMAL) Vitamin D, 25-Hydroxy (05/15/2019 9:57 AM EDT) Vitamin D Total 25 OH 23(L) 30 - 100 ng/mL [facility] Comment: Deficient <10 ng/mL Insufficient 10 to 29 ng/mL Sufficient 30 to 100 ng/mL Potential Intoxication >100 ng/mL According to the [place] National Osteoporosis Foundation, Vitamin D concentrations >30 ng/mL are sufficient to protect bone health. ??The National Kidney Foundation has similarly stated that patients with Vitamin D concentrations <30ng/mL should be considered to be insufficient or deficient. http://[employer].com/nkf-guidelines http://[employer]/nejm-VitD The [employer] i[employer] Vitamin D Immunoassay detects both 25-OH Vitamin D2 and 25-OH Vitamin D3, but only a total Vitamin D concentration is reported. Blood specimen (specimen) 05/15/2019 9:57 AM EDT 05/15/2019 11:15 AM EDT Narrative Resulting Agency Comment Spec In Lab Jalen Sheffield MD CHEMISTRY ORDERAB LES [facility] [place] [address] * Comprehensive metabolic panel (non-fasting) (05/15/2019 9:57 AM EDT) Glucose 69 65 - 199 mg/dL [facility] Comment:Diabetes: >=200 mg/d L plus symptoms Blood Urea Nitrogen 10 8 - 18 mg/dL [facility] Creatinine 0.88 0.70 - 1.20 mg/dL [facility] Sodium 139 135 - 145 mmol/L [facility] Potassium 4.2 3.5 - 5.0 mmol/L [facility] Comment: Please note: ??Patients with WBC >100,000 may have falsely elevated Potassium levels. ??For accurate Potassium quantification in these patients send serum separator tube (gold top) for subsequent determinations. ??Contact the Clinical Chemistry Laboratory if there are any questions. Chloride 102 98 - 107 mmol/L [facility] Carbon Dioxide 28 22 - 31 mmol/L [facility] Anion Gap 9 5 - 15 mmol/L [facility] Calcium 9.3 8.5 - 10.5 mg/dL [facility] Protein, Total 8.0 6.1 - 8.0 gm/dL [facility] Albumin 4.8 3.2 - 5.2 gm/dL [facility] Aspartate Aminotransferase 15 0 - 30 unit/L [facility] Alanine Aminotransferase 12 0 - 30 unit/L [facility] Alkaline Phosphatase 102 35 - 105 unit/L [facility] Bilirubin, Total 0.4 0.2 - 1.3 mg/dL [facility] Est Glomerular Filtration Rate 89 >=60 mL/min/1. 73 m?? [facility] Comment: The eGFR was calculated using the CKD-EPI equation. As with all creatinine based estimates of kidney function, eGFR values calculated with the CKD-EPI equation are not accurate in patients with acute kidney failure, extremes of body mass or the acutely ill. http://[employer]/[facility] – MOOREnkf eGFR 104 >=60 mL/min/1. 73 m?? [facility] Comment: The eGFR was calculated using the CKD-EPI equation. As with all creatinine based estimates of kidney function, eGFR values calculated with the CKD-EPI equation are not accurate in patients with acute kidney failure, extremes of body mass or the acutely ill. http://[employer]/[facility]OR[facility] Blood specimen (specimen) 05/15/2019 9:57 AM EDT 05/15/2019 10:07 AM EDT Narrative Resulting Agency Comment Spec In Lab Jalen Sheffield MD CHEMISTRY ORDERAB LES Performing Organization Address City/[facility]/ZIP Co de Phone Number [facility] [place] [address] * T3 Total (05/15/2019 9:57 AM EDT) T3 Total 101 75 - 170 ng/dL [facility] Blood specimen (specimen) 05/15/2019 9:57 AM EDT 05/15/2019 10:07 AM EDT Narrative Resulting Agency Comment Spec In Lab Jalen Sheffield MD CHEMISTRY ORDERAB LES [facility] [place] [address] * (ABNORMAL) T4, free (05/15/2019 9:57 AM EDT) Free T4 0.92(L) 0.93 - 1.70 ng/dL [facility] Blood specimen (specimen) 05/15/2019 9:57 AM EDT 05/15/2019 10:07 AM EDT Narrative Resulting Agency Comment Spec In Lab Jalen Sheffield MD CHEMISTRY ORDERAB LES Performing Organization Address City/[facility]/ZIP Co de Phone Number [facility] [place] [address] * (ABNORMAL) TSH (05/15/2019 9:57 AM EDT) Thyroid Stimulating Hormone 9.98(H) 0.27 - 4.20 mcIU/mL [facility] Blood specimen (specimen) 05/15/2019 9:57 AM EDT 05/15/2019 10:07 AM EDT Narrative Resulting Agency Comment Spec In Lab Jalen Sheffield MD CHEMISTRY ORDERAB LES Performing Organization Address City/[facility]/ZIP Co de Phone Number [facility] [place] [address] documented in this encounter Visit Diagnoses Diagnosis Hyperthyroidism Thyrotoxicosis without mention of goiter or other cause, without mention of thyrotoxic crisis or storm Rowena's thyroiditis Chronic lymphocytic thyroiditis Vitamin D deficiency Unspecified vitamin D deficiency documented in this encounter Care Teams Head Sawyer Automatic Relationship Specialty Start Date End Date Kristina Zurita APRN [address] [place] [address] PCP - General Family Medicine 10/06/17 documented as of this encounter
--- OUTSIDE RECORDS SUMMARY | 2024-05-16 15:28 | XMS_ITS | Encounter Summary ---
Author Organization [facility] [place] [address] Care Team Providers Care Implementation Project Manager Name Role Phone Kristina Zurita APRN Primary Care Provider [phone] Encounter Details Date Type Department Care Team (Late st Contact Info) Description 07/02/2019 Telephone [place] [address] Ezequiel Bauer MD [facility] DR ENDOCRINOLOGY DEPT [place] [id number] Social History Tobacco Use Types Packs/Day Years Used Date Smoking Tobacco: Never Smokeless Tobacco: Never Sex and Gender Information Value Date Recorded Sex Assigned at Not on file Gender Identity Not on file Sexual Orientation Not on file documented as of this encounter Miscellaneous Notes * Telephone Encounter - Ezequiel Bauer MD - 07/02/2019 8:01 AM EDT Reached out to Ms. Ehsan Fernandez over phone today. She said she got her blood work done at PCP office. I requested her to ask the PCP office fax the blood work results to us. Provided fax number ([phone]) documented in this encounter Plan of Treatment Not on file documented as of this encounter Visit Diagnoses Not on filedocumented in this encounter Care Teams Implementation Project Manager Relationship Specialty Start Date End Date Kristina Zurita APRN [address] [place] [address] PCP - General Family Medicine 10/06/17 documented as of this encounter
--- OUTSIDE RECORDS SUMMARY | 2024-05-16 15:28 | XMS_ITS | Encounter Summary ---
Author Organization [facility] [place] [address] Care Team Providers Care Copier Technician Name Role Phone Kristina Zurita APRN Primary Care Provider [phone] [phone] Encounter Details Date Type Department Care Team (Late st Contact Info) Description 04/18/2018 9:00 AM EDT Office Visit Dermatology at [facility] [address] [place] [address] Denice Lester MD [facility] DR LYNDA [place] [address] Multiple benign nevi (Primary Dx); Nevus spilus; Redmond angioma; Skin tag; Ephelis; Family history of skin cancer; Screening for skin cancer Social History Tobacco Use Types Packs/Day Years Used Date Smoking Tobacco: Never Smokeless Tobacco: Never Sex and Gender Information Value Date Recorded Sex Assigned at Not on file Gender Identity Not on file Sexual Orientation Not on file documented as of this encounter Progress Notes * Denice Lester MD - 04/18/2018 9:00 AM EDT Images from the original note were not included. DERMATOLOGY - NEW PATIENT NOTE Date of service: 04/18/2018 Yesenia Aguilar : 1990, 28 y.o. Chief Complaint: Pigmented lesion and skin cancer evaluation. HPI: Yesenia Aguilar is a 28 y.o. female with the following concerns: Here today for a full skin check. States she has no real concerns. C/o some spots on her armpits. Wears sunscreen diligently. States her mother had a mole surgically removed on her right arm, not sure if it was cancerous but knows it was removed with surgery. Relevant Skin History: - Okay to leave detailed message with results? 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 Penicillins Review of Systems: - General: Feels well. - Skin: No other skin concerns. Examination: - Constitutional: Patient was alert, well-appearing and in no noticeable distress. - Skin: Patient was asked to disrobe to the level of their comfort. A total body skin exam except for areas covered by underwear was performed. This includes examination of the skin of the face, ears, neck, upper chest, axillae, left and right upper and lower extremities, hands and feet, abdomen, and except the areas covered by underwear were not examined. A female nurse was present and on standby during my examination. Diagnosis/Skin findings/Assessment/Plan: 1. Skin tags, 0.2-0.4cm, sessile, flesh-colored papules on axillae; pt declines removal -benign, reassured. 2. Ephelides: Innumerable well-demarcated light brown macules on the shoulder and extremities and face. - Reassured of the benign nature of these lesions. No treatment needed. Instructed pt to monitor for changes (growing in size, changing colour) or if it becomes symptomatic, then to return to clinic for re-evaluation. 3. Nevus spilus; brown macules grouped in a patch on right buttock; pt reassured 4. Multiple benign nevi, Multiple, 0.3-0.5cm, medium-brown, evenly-pigmented macules and papules. All with regular pigment pattern on dermoscopy. No pigmented lesions suspicious for melanoma, pt reassured 5. Redmond angiomata, Multiple 0.2-0.4cm bright red, well-demarcated papules scattered Sunscreen: -use at least SPF 30 sunscreen preferably zinc or titanium oxide, avoid peak hours of the day between 10am-2pm when the sun is the brightest. Neutragena broad spectrum, Vanicream SPF 35. Most important is to find a sunscreen that you like and to use it regularly -wear a broad brimmed hat when outside, and sunglass RTC: 2 years for a full skin check. Note initiated by FREDY OSWALD RN. I performed the above scribed service and agree with the accuracy of the documentation in this encounter. Reviewed and signed by Denice Lester MD Resident in Dermatology [facility] Patient seen in conjunction with staff fisher spear: Manuel Galeano MD Section of Dermatology [facility] * Manuel Galeano MD - 04/18/2018 9:00 AM EDT I directly supervised Dr. Denice Lester during this office visit. Dr. Lester presented the history and physical exam to me. I then saw and examined this patient with Dr. Lester. We reviewed the history and pertinent details and I confirmed the physical findings. I agree with the details of the history and physical exam as documented in Dr. Lester's note. MANUEL GALEANO MD Staff Physician documented in this encounter Plan of Treatment Not on file documented as of this encounter Visit Diagnoses Diagnosis Multiple benign nevi- Primary Benign neoplasm of skin, site unspecified Nevus spilus Benign neoplasm of skin, site unspecified Redmond angioma Nevus, non-neoplastic Skin tag Unspecified hypertrophic and atrophic condition of skin Ephelis Other dyschromia Family history of skin cancer Family history of other specified malignant neoplasm Screening for skin cancer Screening for malignant neoplasm of the skin documented in this encounter Care Teams Copier Technician Relationship Specialty Start Date End Date Kristina Zurita APRN [address] [place] [address] PCP - General Family Medicine 10/06/17 documented as of this encounter
--- OUTSIDE RECORDS SUMMARY | 2024-05-16 15:28 | XMS_ITS | Encounter Summary ---
Author Organization [facility] [place] [address] Care Team Providers Care Pharmaceutical Laboratory Technician Name Role Phone Kristina Zurita APRN Primary Care Provider [phone] Encounter Details Date Type Department Care Team (Late st Contact Info) Description 07/04/2019 Telephone [place] [address] Ezequiel Bauer MD [facility] [place] [address] Social History Tobacco Use Types Packs/Day Years Used Date Smoking Tobacco: Never Smokeless Tobacco: Never Sex and Gender Information Value Date Recorded Sex Assigned at Not on file Gender Identity Not on file Sexual Orientation Not on file documented as of this encounter Miscellaneous Notes * Telephone Encounter - Majo Cole RN - 07/04/2019 10:33 AM EDT Rcvd phone msg from pt's PCP office re pt's TSH. They spoke to pt once they saw result and she apparently never picked up her 50 mcg LT4 rx. Will update PCP office on Dr Bauer's plan below and wait for pt to return Dr Bauer's call. * Telephone Encounter - Ezequiel Bauer MD - 07/04/2019 8:21 AM EDT Received Blood work results from 06/28/19: TSH: 3.89 (0.36-3.74) 25 OH Vit D: 21.2 (30-100) Could not reach her on phone today. Left a voice message and will send a letter. New recommendations: 1. Increase Levothyroxine to 75 mcg per day. 2. Increase Vitamin D to 4000 units per day (Take 2 caps of 2000 units). 3. Repeat Blood work in 2 months: Ordered Medications transmitted to her pharmacy. Will send out a letter about the new recommendations and blood work external orders. D/W Dr. Sheffield documented in this encounter Plan of Treatment Not on file documented as of this encounter Visit Diagnoses Diagnosis Rowena's thyroiditis Chronic lymphocytic thyroiditis Vitamin D deficiency Unspecified vitamin D deficiency documented in this encounter Care Teams Pharmaceutical Laboratory Technician Relationship Specialty Start Date End Date Kristina Zurita APRN [address] [place] [address] PCP - General Family Medicine 10/06/17 documented as of this encounter
--- OUTSIDE RECORDS SUMMARY | 2024-05-16 15:28 | XMS_ITS | Encounter Summary ---
[place] [address] Care Team Providers Care Ux Consultant Name Role Phone Kristina Zurita APRN Primary Care Provider [phone] Encounter Details Date Type Department Care Team (Late st Contact Info) Description 07/10/2019 Telephone [place] [phone] Majo Navarro RN Social History Tobacco Use Types Packs/Day Years Used Date Smoking Tobacco: Never Smokeless Tobacco: Never Sex and Gender Information Value Date Recorded Sex Assigned at Not on file Gender Identity Not on file Sexual Orientation Not on file documented as of this encounter Miscellaneous Notes * Telephone Encounter - Majo Cole RN - 07/10/2019 10:32 AM EDT Pt left msg requesting rx for LT4 stating it had never been called into her pharmacy. Left msg for pt requesting r/c to discuss. Per most recent outgoing letter from Dr Bauer, pt may not need to be taking. documented in this encounter Plan of Treatment Not on file documented as of this encounter Visit Diagnoses Not on filedocumented in this encounter Care Teams Ux Consultant Relationship Specialty Start Date End Date Kristina Zurita APRN [address] [place] [address] PCP - General Family Medicine 10/06/17 documented as of this encounter
--- OUTSIDE RECORDS SUMMARY | 2024-05-16 15:28 | XMS_ITS | Encounter Summary ---
Author Organization [facility] [place] [address] Care Team Providers Care Sheetmetal Trades Worker Name Role Phone Kristina Zurita APRN Primary Care Provider [phone] [phone] Encounter Details Date Type Department Care Team (Late st Contact Info) Description 07/26/2019 Notes Only Endocrinology at [facility] [address] [place] [phone] [facility] [place] [address] Social History Tobacco Use Types Packs/Day Years Used Date Smoking Tobacco: Never Smokeless Tobacco: Never Sex and Gender Information Value Date Recorded Sex Assigned at Not on file Gender Identity Not on file Sexual Orientation Not on file documented as of this encounter Progress Notes * Natasha Jiménez RD - 07/26/2019 8:36 AM EDT Canceled patient's nutrition appointment with me after speaking with Ezequiel Bauer MD. No referral and no intention of referral. No referral from an outside provider either. No documentation from any providers in phone calls, office notes, etc regarding pt needing appointment with me. I only see patients with diabetes in Endocrine 5C, if pt needs a referral to nutrition services for another reasonit should be shifted to a primary care practice or another site. NILO Kc documented in this encounter Plan of Treatment Not on file documented as of this encounter Visit Diagnoses Not on filedocumented in this encounter Care Teams Sheetmetal Trades Worker Relationship Specialty Start Date End Date Kristina Zurita APRN [address] [place] [address] PCP - General Family Medicine 10/06/17 documented as of this encounter
--- OUTSIDE RECORDS SUMMARY | 2024-05-16 15:28 | XMS_ITS | Encounter Summary ---
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; Chronic fatigue Social History Tobacco Use Types Packs/Day Years Used Date Smoking Tobacco: Never Smokeless Tobacco: Never Sex and Gender Information Value Date Recorded Sex Assigned at Not on file Gender Identity Not on file Sexual Orientation Not on file documented as of this encounter Last Filed Vital Signs Vital Sign Reading Time Taken Comments Blood Pressure 125/68 08/24/2021 9:50 AM EST Pulse 80 08/24/2021 9:50 AM EST Temperature 36.2 ??C (97.1 ??F) 08/24/2021 9:50 AM ES T Respiratory Rate - - Oxygen Saturation 100% 08/24/2021 9:50 AM EST Inhaled Oxygen Concentration - - Weight 89.4 kg (197 lb 1.6 oz) 08/24/2021 9:50 A M EST Height 175.3 cm (5' 9) 08/24/2021 9:50 AM EST Body Mass Index 29.11 08/24/2021 9:50 AM EST documented in this encounter Progress Notes * Gsiell Lai MD - 08/24/2021 10:00 AM EST Endocrinology Consultation Date of Visit: 08/24/21 Patient: Name: Yesenia Aguilar : 1990 Yesenia Aguilar was seen in consultation in the Endocrine clinic at the request of Dr. Kristina Zurita APRN for: hypothyroidism. Patient's previous record as are the lab results are reviewed. HISTORY OF PRESENT ILLNESS: Yesenia Aguilar??is a 31 y/o F??with no significant medical history who [...] started her on Levothyroxine 25 mcg daily. Family history is significant for??Rowena thyroiditis in mother.? Interim events: Today she reports she is feeling excessive fatigue for a few weeks. She also received her Covid booster shot five days after the fatigue started, which she thinks exacerbated the symptoms. Her other complaints include hot sweats at night, hair loss and forgetfulness. She is currently taking Levothyroxine 25mcg daily; she takes it in the morning on an empty stomach and waits to have breakfast. Does not skip doses. She gained 5 to 10 lbs within the last 6 months. Denies cold intolerance, constipation, muscle and joint pain, sleep disturbance, goitre, difficulty swallowing or breathing, menstrual irregularities and change in voice.?? Recent labs: 08/25/2020 TSH 2.88 FT4 1.18 TT3 117 REVIEW OF SYSTEMS: as per HPI, all other systems reviewed and negative Patient Active Problem List Diagnosis Code ??? Hyperthyroidism E05.90 Allergies Allergen Reactions ??? Penicillins Current Outpatient Medications on File Prior to Visit Medication Sig Dispense Refill ??? levothyroxine (Synthroid) 50 mcg Tablet Take 1 tablet by mouth daily. 90 tablet 3 ??? cholecalciferol, Vitamin D3, 25 mcg (1,000 unit) Capsule Take 1 capsule by mouth daily. 90 capsule 3 ??? ergocalciferoL, vitamin D2, (vitamin D2) 50,000 unit Capsule Take 1 capsule by mouth once a week. (Patient not taking: Reported on 08/24/2021) 12 capsule 0 No current facility-administered medications on file prior to visit. Social History Socioeconomic History ??? Marital status: Spouse name: None ??? Number of children: None ??? Years of education: None ??? Highest education level: None Occupational History ??? None Tobacco Use ??? Smoking status: Never Smoker ??? Smokeless tobacco: Never Used Vaping Use ??? Vaping Use: Never used Substance and Sexual Activity ??? Alcohol use: None ??? Drug use: None ??? Sexual activity: None Other Topics Concern ??? None Social History Narrative ??? 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 Hx of pancreatic cancel on paternal grandma Maternal drand with breast cancer Maternal grandfather with cardiac disease PHYSICAL EXAM: BP 125/68 Pulse 80 Temp 36.2 ??C (97.1 ??F) Ht 175.3 cm (5' 9) Wt 89.4 kg (197 lb 1.6 oz) SpO2 100% BMI 29.11 kg/m?? GENERAL: Well nourished, well hydrated, in no distress, oriented x 3 EYES: no thyroid eye signs, JUANCHO, Fundi normal, cornea normal NECK: supple, slightly enlarged goiter, no bruit, [...] DIAGNOSIS: Hypothyroidism, due to Rowena's thyroiditis. PLAN: Lab results from today show an elevated TSH despite free T4 at the normal range. She needs a higherdose of Levothyroxine, and today we will increase the medication from 25mcg daily to 50mcg daily. Because her Vit D levels were low in August of last year, and she is non compliant with her vit Dsupplementation, we will repeat the levels today. We went over the importance of Vit D for bone build up, and patient agreed to take 2,000 IU of Vit D daily. For her symptoms of forgetfulness we willcheck vit B12 levels. Thank you for allowing me to participate in the care of this very pleasant patient. Case d/w Dr. Yohannes Lai Endocrinology Fellow Pager [phone] cc: Kristina Zurita APRN * Jalen Sheffield MD - 08/24/2021 10:00 AM EST I have seen the patient and reviewed Dr. Gisell Lai's above history and I agree with the detailsas written. The assessment and plan were formulated in discussion with me and I agree with them as documented. Jalen Sheffield MD, PhD, FACP, FACE documented in this encounter Plan of Treatment Not on file documented as of this encounter Results * Vitamin B12 (08/24/2021 10:55 AM EST) Vitamin B12 366 232 - 1,245 pg/mL [facility] Blood 08/24/2021 10:5 5 AM EST 08/24/2021 11:11 AM EST Narrative Resulting Agency Comment Spec In Lab Jalen Sheffield MD CHEMISTRY ORDERAB LES Performing Organization Address City/[facility]/ZIP Co de Phone Number [facility] [place] [address] * Vitamin D, 25-Hydroxy (08/24/2021 10:55 AM EST) Pathologist [facility] Vitamin D Total 25 OH 25 21 - 100 ng/mL [facility] Vit D Interp Insufficient [facility] Blood 08/24/2021 10:5 5 AM EST 08/24/2021 11:11 AM EST Narrative Resulting Agency Comment Spec In Lab Jalen Sheffield MD CHEMISTRY ORDERAB LES Performing Organization Address City/[facility]/ZIP Co de Phone Number [facility] [place] [address] * T3 Total (08/24/2021 10:55 AM EST) T3 Total 109 75 - 170 ng/dL [facility] Blood 08/24/2021 10:5 5 AM EST 08/24/2021 11:11 AM EST Narrative Resulting Agency Comment Spec In Lab Jalen Sheffield MD CHEMISTRY ORDERAB LES Performing Organization Address City/[facility] Co de Phone Number [facility] [place] [address] * T4, free (08/24/2021 10:55 AM EST) Free T4 1.29 0.93 - 1.70 ng/dL [facility] Comment: Reference Interval (ng/dL): Females: ??First Trimester: 0.97-1.68 ??Second Trimester: 0.77-1.51 ??Third Trimester: 0.77-1.49 Blood 08/24/2021 10:5 5 AM EST 08/24/2021 11:11 AM EST Narrative Resulting Agency Comment Spec In Lab Jalen Sheffield MD CHEMISTRY ORDERAB LES Performing Organization Address [facility] Co de Phone Number [facility] [place] [address] * (ABNORMAL) TSH (08/24/2021 10:55 AM EST) Thyroid Stimulating Hormone 4.70(H) 0.27 - 4.20 mcIU/mL [facility] Comment: Reference Interval (mcIU/mL): Females: ??First Trimester: 0.23-3.88 ??Second Trimester: 0.22-3.90 ??Third Trimester: 0.44-4.66 Blood 08/24/2021 10:5 5 AM EST 08/24/2021 11:11 AM EST Narrative Resulting Agency Comment Spec In Lab Jalen Sheffield MD CHEMISTRY ORDERAB LES Performing Organization Address [facility] Co de Phone Number [facility] [place] [address] documented in this encounter Visit Diagnoses Diagnosis 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
--- OUTSIDE RECORDS SUMMARY | 2024-05-16 15:28 | XMS_ITS | Encounter Summary ---
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 Chronic fatigue HC TOTAL T3 Routine 08/24/2021 10:55 AM EST 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 Chronic fatigue HC THYROID STIMULATING HORMONE, SERUM Routine 08/24/2021 10:55 AM EST 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 Chronic fatigue HC FREE THYROXINE (T4) Routine 08/24/2021 10:55 AM EST 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 Chronic fatigue HC VENIPUNCTURE Routine 08/24/2021 10:55 AM EST 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 Chronic fatigue documented in this encounter Results * (ABNORMAL) TSH (08/24/2021 10:55 AM EST) Thyroid Stimulating Hormone 4.70(H) 0.27 - 4.20 mcIU/mL [facility] Comment: Reference Interval (mcIU/mL): Females: ??First Trimester: 0.23-3.88 ??Second Trimester: 0.22-3.90 ??Third Trimester: 0.44-4.66 Blood 08/24/2021 10:5 5 AM EST 08/24/2021 11:11 AM EST Narrative Resulting Agency Comment Spec In Lab Jalen Sheffield MD CHEMISTRY ORDERAB LES Performing Organization Address [facility] Co de Phone Number [facility] [place] [address] * T4, free (08/24/2021 10:55 AM EST) Free T4 1.29 0.93 - 1.70 ng/dL [facility] Comment: Reference Interval (ng/dL): Females: ??First Trimester: 0.97-1.68 ??Second Trimester: 0.77-1.51 ??Third Trimester: 0.77-1.49 Blood 08/24/2021 10:5 5 AM EST 08/24/2021 11:11 AM EST Narrative Resulting Agency Comment Spec In Lab Jalen Sheffield MD CHEMISTRY ORDERAB LES Performing Organization Address City/[facility] Co de Phone Number [facility] [place] [address] * T3 Total (08/24/2021 10:55 AM EST) T3 Total 109 75 - 170 ng/dL [facility] Blood 08/24/2021 10:5 5 AM EST 08/24/2021 11:11 AM EST Narrative Resulting Agency Comment Spec In Lab Jalen Sheffield MD CHEMISTRY ORDERAB LES Performing Organization Address City/[facility]/ZIP Co de Phone Number [facility] [place] [address] * Vitamin D, 25-Hydroxy (08/24/2021 10:55 AM EST) Vitamin D Total 25 OH 25 21 - 100 ng/mL [facility] Vit D Interp Insufficient [facility] Blood 08/24/2021 10:5 5 AM EST 08/24/2021 11:11 AM EST Narrative Resulting Agency Comment Spec In Lab Jalen Sheffield MD CHEMISTRY ORDERAB LES Performing Organization Address City/[facility] Co de Phone Number [facility] [place] [address] * Vitamin B12 (08/24/2021 10:55 AM EST) Vitamin B12 366 232 - 1,245 pg/mL [facility] Blood 08/24/2021 10:5 5 AM EST 08/24/2021 11:11 AM EST Narrative Resulting Agency Comment Spec In Lab Jalen Sheffield MD CHEMISTRY ORDERAB LES Performing Organization Address City/[facility]/ZIP Co de Phone Number [facility] [place] [address] documented in this encounter Visit Diagnoses Diagnosis 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
--- OUTSIDE RECORDS SUMMARY | 2024-05-16 15:28 | XMS_ITS | Encounter Summary ---
[place] [address] Care Team Providers Care Drainage Inspector Name Role Phone Kristina Zurita APRN Primary Care Provider [phone] [phone] Encounter Details Date Type Department Care Team (Late st Contact Info) Description 08/28/2020 Orders Only [place] [address] Ezequiel Bauer MD [facility] [place] [address] Vitamin D deficiency Social History Tobacco Use Types Packs/Day Years Used Date Smoking Tobacco: Never Smokeless Tobacco: Never Sex and Gender Information Value Date Recorded Sex Assigned at Not on file Gender Identity Not on file Sexual Orientation Not on file documented as of this encounter Plan of Treatment Not on file documented as of this encounter Visit Diagnoses Diagnosis Vitamin D deficiency Unspecified vitamin D deficiency documented in this encounter Care Teams Drainage Inspector Relationship Specialty Start Date End Date Kristina Zurita APRN [address] [place], [place] [address] PCP - General Family Medicine 10/06/17 documented as of this encounter
--- OUTSIDE RECORDS SUMMARY | 2024-05-16 15:28 | XMS_ITS | Encounter Summary ---
Author Organization [facility] [place] [address] Care Team Providers Care Pneumatic Systems Operator Name Role Phone Kristina Zurita APRN Primary Care Provider [phone] Encounter Details Date Type Department Care Team (Late st Contact Info) Description 03/05/2020 Orders Only [place] [address] Ezequiel Bauer MD [facility] [place] [address] Vitamin D deficiency; Rowena's thyroiditis Social History Tobacco Use Types [...] Vitamin D deficiency Unspecified vitamin D deficiency Rowena's thyroiditis Chronic lymphocytic thyroiditis documented in this encounter Care Teams Pneumatic Systems Operator Relationship Specialty Start Date End Date Kristina Zurita APRN [address] [place] [address] PCP - General Family Medicine 10/06/17 documented as of this encounter
--- OUTSIDE RECORDS SUMMARY | 2024-05-16 15:28 | XMS_ITS | Encounter Summary ---
Author Organization [facility] [place] [address] Care Team Providers Care Blanket Winder Helper Name Role Phone Kristina Zurita APRN Primary Care Provider [phone] [phone] Encounter Details Date Type Department Care Team (Late st Contact Info) Description 07/26/2019 10:00 AM EDT Office [place] [id number] Ezequiel Bauer MD [facility] [place] [address] Rowena's thyroiditis (Primary Dx); Vitamin D deficiency Social History Tobacco Use Types Packs/Day Years Used Date Smoking Tobacco: Never Smokeless Tobacco: Never Sex and Gender Information Value Date Recorded Sex Assigned at Not on file Gender Identity Not on file Sexual Orientation Not on file documented as of this encounter Last Filed Vital Signs Vital Sign Reading Time Taken Comments Blood Pressure 130/67 07/26/2019 9:30 AM EDT Pulse 97 07/26/2019 9:30 AM EDT Temperature - - Respiratory Rate - - Oxygen Saturation - - Inhaled Oxygen Concentration - - Weight 81.6 kg (180 lb) 07/26/2019 9:30 AM EDT Height 172.7 cm (5' 8) 07/26/2019 9:30 AM EDT Body Mass Index 27.37 07/26/2019 9:30 AM EDT documented in this encounter Progress Notes * Ezequiel Bauer MD - 07/26/2019 10:00 AM EDT Images from the original note were not included. Endocrinology Outpatient Follow up Name: Yesenia Aguilar Date: 07/26/19 HPI Ms. Yesenia Aguilar is a 29 y/o F, with no significant medical history was diagnosed with post thyroiditis in Jan, 2019, was treated with Methimazole for about a month when she became euthyroidand medication was discontinued. I initially saw her in April,, TFT during that visit revealed hypothyroid state and we prescribed Levothyroxine 50 mcg. However, she never started taking the medication and repeat TFT in June showed significantly improved TSH (9.98--->3.89) without treatment and we decided to hold treatment. She had elevated TPO and TG antibodies on initial work up. She is here today for follow up. She continues to feel tired and still has some hair loss. She denies weight gain, cold intolerance, constipation, muscle and joint pain, forgetfulness, sleep disturbance, goitre, difficulty swallowing or breathing, and change in voice. Family history is significant for Rowena thyroiditis in mother. Review of Systems Constitutional: Fatigue +, no recent weight change. Endocrine: No thyroid enlargement or tenderness. Integument: hair loss +, dry skin +, Neurological: No headache or weakness. No seizure, fainting or dizziness Eyes: No recent vision changes ENT: No dysphagia Cardiovascular: No chest pain or palpitations Respiratory: No cough, wheezing, shortness of breath GI: Normal appetite. No diarrhea, constipation : No frequent urinary tract infections or polyuria Musculoskeletal: No joint aches, muscle pain. No back pain Psychiatric: No depression, anxiety Vitals BP 130/67 Pulse 97 Ht 172.7 cm (5' 8) Wt 81.6 kg (180 lb) BMI 27.37 kg/m?? Physical Exam: General appearance: pleasant female pt, not in distress HEENT: anicteric, EOMI, GEETHA, no lymphadenopathy, moist mucus membranes CVS: +S1, S2. no murmurs, RRR Pulm: clear to auscultation BL Abd: soft, non-tender, non-distended, +bowel sounds, no rebound or guarding Extremities: 2+ pulses peripherally, no edema, no wounds over feet Neurological: Non-focal, 2+ DTRs Skin: no lesions Thyroid exam: no lid lag or retraction, no proptosis, no goitre, no tremor Current Medications: ??? cholecalciferol, Vitamin D3, 2,000 unit Capsule ??? levothyroxine (SYNTHROID) 25 mcg Tablet Labs: February,: TSH: 0.01 uIU/ml (0.358-3.74) FT4: 4.08 ng/dl (0.76-1.46) Thyroglobulin Ab: 100 u/ml (<61) TPO Ab: 1025 u/ml (<61) 06/28/19 TSH: 3.89 (0.36-3.74) 25 OH Vit D: 21.2 (30-100) 07/26/19 Assessment and plan: Ms. Yesenia Aguilar is a 29 y/o F, with no significant medical history, was diagnosed with post thyroiditis in Jan, 2019, was treated with Methimazole for about a month when she became euthyroid and medication was discontinued. TFT during her initial visit revealed hypothyroid state, which con tinued to improve without treatment. TPO and TG antibodies were elevated. She also has Vitamin D deficiency. # Rowena thyroiditis # Vitamin D deficiency She continues to have fatigue and hair loss, TSH is mildly elevated on blood work today and has positive TPO and TG antibodies, we will start treating her with Levothyroxine 25 mcg daily, medication has to be taken on empty stomach 1 hour before breakfast and should be spaced out from other medications (Calcium, Magnesium, vitamin, mineral supplements and PPI) by 3-4 hours. Will repeat blood workin 6 weeks before adjusting medication dosage. She will continue to take Vitamin D 4000 units every day for now and will repeat Vitamin D levels in 2 months. She will return to clinic in 6 months. Blood work results from today discussed with her. She understands and agrees with the above plan. All her questions answered. Thank you for allowing us to participate in the care of this patient. D/W Dr. Yohannes Bauer Endocrinology, Diabetes and Metabolism Fellow Pager: [phone] * Jalen Sheffield MD - 07/26/2019 10:00 AM EDT I have seen the patient and reviewed Dr.Hima Bauer's above history and I agree with the details aswritten. The assessment and plan were formulated in discussion with me and I agree with them as documented. Jalen Sheffield MD, PhD, FACP, FACE documented in this encounter Plan of Treatment Not on file documented as of this encounter Procedures Procedure Name Priority Date/Time Associated Diagnosis Comments HC TOTAL T3 Routine 07/26/2019 10:06 AM EDT Rowena's thyroiditis HC THYROID STIMULATING HORMONE, SERUM Routine 07/26/2019 10:06 AM EDT Rowena's thyroiditis HC FREE THYROXINE (T4) Routine 07/26/2019 10:06 AM EDT Rowena's thyroiditis documented in this encounter Results * T3 Total (07/26/2019 10:06 AM EDT) T3 Total 100 75 - 170 ng/dL [facility] Blood specimen (specimen) 07/26/2019 10:06 AM EDT 07/26/2019 10:24 AM EDT Narrative Resulting Agency Comment Spec In Lab Jalen Sheffield MD CHEMISTRY ORDERAB LES Performing Organization Address City/[facility]/ZIP Co de Phone Number [facility] [place] [address] * T4, free (07/26/2019 10:06 AM EDT) Free T4 1.01 0.93 - 1.70 ng/dL [facility] Blood specimen (specimen) 07/26/2019 10:06 AM EDT 07/26/2019 10:24 AM EDT Narrative Resulting Agency Comment Spec In Lab Jalen Sheffield MD CHEMISTRY ORDERAB LES Performing Organization Address City/[facility]/ZIP Co de Phone Number [facility] [place] [address] * (ABNORMAL) TSH (07/26/2019 10:06 AM EDT) Thyroid Stimulating Hormone 4.60(H) 0.27 - 4.20 mcIU/mL [facility] Blood specimen (specimen) 07/26/2019 10:06 AM EDT 07/26/2019 10:24 AM EDT Narrative Resulting Agency Comment Spec In Lab Jalen Sheffield MD CHEMISTRY ORDERAB LES [facility] [place] [address] documented in this encounter Visit Diagnoses Diagnosis Rowena's thyroiditis- Primary Chronic lymphocytic thyroiditis Vitamin D deficiency Unspecified vitamin D deficiency documented in this encounter Care Teams Blanket Winder Helper Relationship Specialty Start Date End Date Kristina Zurita APRN [address] [place] [address] PCP - General Family Medicine 10/06/17 documented as of this encounter
--- OUTSIDE RECORDS SUMMARY | 2024-05-16 15:28 | XMS_ITS | Encounter Summary ---
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 Endocrinology Follow up Visit ? Name: Yesenia Aguilar Date: 02/07/20 Encounter type: Telephone Patient verbally consents to this telephone visit and understands that this visit may be billed, similar to a clinic office visit. I provided care to the patient today via telephone call. The total time associated with this visit was 30 minutes. ID: Yesenia Aguilar??is a 29 y/o F with no significant medical history was diagnosed with post thyroiditis in Jan, 2019, was treated with Methimazole for about a month when she became euthyroid, and medication was discontinued. I initially saw her in April,, TFT during that visit revealed hypothyroid state and we prescribed Levothyroxine 50 mcg. However, she never started taking the medication and repeat TFT in June showed significantly improved TSH (9.98--->3.89) without treatment and we decided to hold treatment. She had elevated TPO and TG antibodies on initial work up. Family history is significant for Rowena thyroiditis in mother.? During her follow up appointment in July,, She reported fatigue and hair loss, TSH was mildly elevated. Due to positive TPO and TG antibodies, we started her on Levothyroxine 25 mcg daily. Interim events: She feels well since starting medication, have normal energy levels and does not have hair loss. She denies weight gain, cold intolerance, constipation, muscle and joint pain, forgetfulness, sleep disturbance, goitre, difficulty swallowing or breathing, and change in voice. Review of Systems Constitutional: no fatigue, no recent weight change. Endocrine: No thyroid enlargement or tenderness. Integument: no hair loss, no dry skin Neurological: No headache or weakness. Eyes: No recent vision changes ENT: No dysphagia Cardiovascular: No chest pain or palpitations Respiratory: No cough, wheezing, shortness of breath GI: Normal appetite. No diarrhea, constipation Musculoskeletal: No joint aches, muscle pain. No back pain Psychiatric: No depression, anxiety Physical Exam: Telephone encounter Labs: February,: TSH:??0.01 uIU/ml (0.358-3.74) FT4:??4.08 ng/dl (0.76-1.46) Thyroglobulin Ab:??100 u/ml (<61) TPO Ab: 1025 u/ml (<61) ? 06/28/19 TSH: 3.89 (0.36-3.74) 25 OH Vit D: 21.2 (30-100) ?? 07/26/19 ?? Assessment and plan: Yesenia Aguilar??is a 29 y/o F, with no significant medical history, was diagnosed with post thyroiditis in Jan, 2019, was treated with Methimazole for about a month when she became euthyroid and medication was discontinued. TFT during her initial visit in April,, revealed hypothyroid state, which continued to improve without treatment. TPO and TG antibodies were elevated and eventually her TSH was elevated in July and she developed some symptoms of hypothyroidism and we startedher on Levothyroxine. # Rowena thyroiditis - She reports having TFT done 3-4 months ago at her PCP office. Recommended her to request PCP office to fax us the results. Recommended her to obtain TFT in 1 month. - She will continue Levothyroxine 25 mcg daily for now, instructed her to take on empty stomach 1 hour before breakfast and space out from other medications (Calcium, Magnesium, vitamin, mineral supplements and PPI) by 3-4 hours. - She will return to clinic in 6 months. ?? Thank you for allowing us to participate in the care of this patient. D/W Dr. Barfield ?? Ezequiel Bauer Endocrinology, Diabetes and Metabolism Fellow [facility] [place] [place] ? * Katya Barfield MD - 02/07/2020 9:30 AM EDT I discussed this patient with Dr. Bauer. I reviewed the gavin portions of the history, and reviewed pertinent lab data. I was involved in all medical decision making and agree with this plan. ?? 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
--- OUTSIDE RECORDS SUMMARY | 2024-05-16 15:28 | XMS_ITS | Encounter Summary ---
Author Organization [facility] [place] [address] Care Team Providers Care House Parent Name Role Phone Kristina Zurita APRN Primary Care Provider [phone] [phone] Encounter Details Date Type Department Care Team (Late st Contact Info) Description 07/04/2019 Notes Only [place] [address] Ezequiel Bauer MD [facility] [place] [address] Social History Tobacco Use Types Packs/Day Years Used Date Smoking Tobacco: Never Smokeless Tobacco: Never Sex and Gender Information Value Date Recorded Sex Assigned at Not on file Gender Identity Not on file Sexual Orientation Not on file documented as of this encounter Progress Notes * Ezequiel Bauer MD - 07/04/2019 3:59 PM EDT Received a message from PCP office that Ms. Aguilar told them that she never started taking Levothyroxine since her initial visit in April, I spoke to her over phone few days ago, and she never mentioned to me that she did not start takingLevothyroxine. I tried calling her multiple times today to confirm this, but unable to reach her. Unaware of this, I sent out a letter to her this morning stating that we are increasing the dose to75 mcg based on her recent blood work results. I sent out another letter to her now asking her not to start the medication at this time as her TSHimproved form 9 to 3.8 in 2 months without medication. Will repeat TFT in 2 months and mailed her blood work orders this morning. Called her pharmacy ([facility]) and cancelled the evothyroxine 75 mcg that was ordered this morning. D/W Dr. Yohannes Bauer MD Fellow, Endocrinology [facility] documented in this encounter Plan of Treatment Not on file documented as of this encounter Visit Diagnoses Not on filedocumented in this encounter Care Teams House Parent Relationship Specialty Start Date End Date Kristina Zurita, SUPERVISOR HARVESTING [address] [place] [address] PCP - General Family Medicine 10/06/17 documented as of this encounter
--- OUTSIDE RECORDS SUMMARY | 2024-05-16 15:28 | XMS_ITS | Encounter Summary ---
Author Organization [facility] [place] [address] Care Team Providers Care Environmental Solutions Engineer Name Role Phone Kristina Zurita APRN Primary Care Provider [phone] -[phone] Encounter Details Date Type Department Care Team (Late st Contact Info) Description 06/24/2019 Orders [place] [address] Ezequiel Bauer MD [facility] [place] [address] Rowena's thyroiditis; Vitamin D deficiency Social History Tobacco Use Types Packs/Day Years Used Date Smoking Tobacco: Never Smokeless Tobacco: Never Sex and Gender Information Value Date Recorded Sex Assigned at Not on file Gender Identity Not on file Sexual Orientation Not on file documented as of this encounter Progress Notes * Ezequiel Bauer MD - 06/24/2019 7:42 AM EDT Unable to reach the patient on phone. She has repeat TFT pending at this time. Labs will be mailed out to her with letter. documented in this encounter Plan of Treatment Not on file documented as of this encounter Visit Diagnoses Diagnosis Rowena's thyroiditis Chronic lymphocytic thyroiditis Vitamin D deficiency Unspecified vitamin D deficiency documented in this encounter Care Teams Environmental Solutions Engineer Relationship Specialty Start Date End Date Kristina Zurita APRN [address] [place] [address] PCP - General Family Medicine 10/06/17 documented as of this encounter
--- OUTSIDE RECORDS SUMMARY | 2024-05-16 15:28 | XMS_ITS | Encounter Summary ---
[place] [address] Care Team Providers Care Architectural Representative Name Role Phone Kristina Zurita APRN Primary Care Provider [phone] -[phone] Reason for Visit * Reason Onset Date Comments Medication Refill 05/11/2021 Encounter Details Date Type Department Care Team (Late st Contact Info) Description 05/11/2021 [place] [id number] Adina Marcano, RN Rowena's thyroiditis Social History Tobacco Use Types [...] thyroiditis documented in this encounter Care Teams Architectural Representative Relationship Specialty Start Date End Date Kristina Zurita APRN [address] [place] [address] PCP - General Family Medicine 10/06/17 documented as of this encounter
[2024-05-16 21:48] LABS: FREE T4 1.27 ng/dL (0.76-1.46); TSH 3.42 uIU/Ml (0.36-3.74)
== END 2024-05-16 15:14 | disposition home or self-care (01) ==
LOC: NCHCN 15:13
PROVIDERS: PCP Nurse Practitioner Family; Visit Provider Nurse Practitioner Family
DX: E03.9 Hypothyroidism, unspecified (principal)
CPT/HCPCS: 84439; 84443

== ENCOUNTER 2024-05-30 18:18 | Outpatient (REF) | payer BC, SELFPAY ==
--- OUTSIDE RECORDS SUMMARY | 2024-05-30 18:27 | XMS_ITS | Encounter Summary ---
Author Organization [facility] [place] [address] Care Team Providers Care Registry Nurse Name Role Phone Kristina Zurita APRN Primary Care Provider [phone] -[phone] Encounter Details Date Type Department Care Team (Late st Contact Info) Description 07/02/2019 Telephone [place] [address] Ezequiel Bauer MD [facility] DR ENDOCRINOLOGY DEPT [place] [id number] Social History Tobacco Use Types Packs/Day Years [...] work results to us. Provided fax number ([phone]) documented in this encounter Plan of Treatment Not on file documented as of this encounter Visit Diagnoses Not on filedocumented in this encounter Care Teams Registry Nurse Relationship Specialty Start Date End Date Kristina Zurita APRN [address] [place] [address] PCP - General Family Medicine 10/06/17 documented as of this encounter
--- OUTSIDE RECORDS SUMMARY | 2024-05-30 18:27 | XMS_ITS | Encounter Summary ---
[place] [address] Care Team Providers Care Robotics Systems Engineer Name Role Phone Kristina Zurita APRN Primary Care Provider [phone] -[phone] Encounter Details Date Type Department Care Team (Late st Contact Info) Description 2020 Telephone [place] [address] Funmilayo Burkett [facility] Social History Tobacco Use Types Packs/Day Years Used Date Smoking Tobacco: Never Smokeless Tobacco: Never Sex and Gender Information Value Date Recorded Sex Assigned at Not on file Gender Identity Not on file Sexual Orientation Not on file documented as of this encounter Miscellaneous Notes * Telephone Encounter - Funmilayo Burkett RMA - 2020 11:19 AM EDT GAP Carbon Paper Coating Supervisor Pre-Telemedicine Phone Note [] Patient not reached [x] Patient reached and the following information was reviewed/obtained per protocol: [x] Confirmed patient name and date of [] Confirmed telemedicine katia (Vidyo and Virtual Visit) is downloaded and functioning [x] Confirmed location of patient - TeleVisit is taking place in [x] [place] [] [place] [] If not on [facility], working on signing up for [facility] [] Confirmed has completed any pre-visit questionnaires [] If has not received required pre-visit questionnaires, send via [facility] [x] Reviewed patient medications [x] Documented self-reported vitals: [x] Weight: 170lbs Height 59 [] pulse recorded: [x] Other information or concerns Pt is going to set up telehealth this afternoon documented in this encounter Plan of Treatment Not on file documented as of this encounter Visit Diagnoses Not on filedocumented in this encounter Care Teams Robotics Systems Engineer Relationship Specialty Start Date End Date Kristina Zurita APRN [address] [place] [address] PCP - General Family Medicine 10/06/17 documented as of this encounter
--- OUTSIDE RECORDS SUMMARY | 2024-05-30 18:27 | XMS_ITS | Encounter Summary ---
Author Organization [facility] [place] [address] Care Team Providers Care Candle Wicker Name Role Phone Kristina Zurita APRN Primary Care Provider [phone] [phone] Encounter Details Date Type Department Care Team (Late st Contact Info) Description 07/04/2019 Notes [place] [address] Ezequiel Bauer MD [facility] [place] [address] Social History Tobacco Use Types Packs/Day Years [...] work orders this morning. Called her pharmacy ([facility]) and cancelled the evothyroxine 75 mcg that was ordered this morning. D/W Dr. Yohannes Bauer MD Fellow, Endocrinology [facility] [place] documented in this encounter Plan of Treatment Not on file documented as of this encounter Visit Diagnoses Not on filedocumented in this encounter Care Teams Candle Wicker Relationship Specialty Start Date End Date Kristina Zurita, GAS PROCESSING PLANT OPERATOR [address] [place] [address] PCP - General Family Medicine 10/06/17 documented as of this encounter
--- OUTSIDE RECORDS SUMMARY | 2024-05-30 18:27 | XMS_ITS | Encounter Summary ---
[place] [address] Care Team Providers Care Airplane Pilot Supervisor Name Role Phone Kristina Zurita APRN Primary Care Provider [phone] [phone] Encounter Details Date Type Department Care Team [...] on filedocumented in this encounter Care Teams Airplane Pilot Supervisor Relationship Specialty Start Date End Date Kristina Zurita APRN [address] [place] [address] PCP - General Family Medicine 10/06/17 documented as of this encounter
--- OUTSIDE RECORDS SUMMARY | 2024-05-30 18:27 | XMS_ITS | Encounter Summary ---
[place] [address] Care Team Providers Care Laser Beam Trim Operator Name Role Phone Kristina Zurita APRN Primary Care Provider +1 -[phone] Encounter Details Date Type Department Care Team [...] on filedocumented in this encounter Care Teams Laser Beam Trim Operator Relationship Specialty Start Date End Date Kristina Zurita APRN [address] [place] [address] PCP - General Family Medicine 10/06/17 documented as of this encounter
--- OUTSIDE RECORDS SUMMARY | 2024-05-30 18:27 | XMS_ITS | Encounter Summary ---
Author Organization [place] [address] Care Team Providers Care Paper Inserter Name Role Phone Kristina Zurita APRN Primary Care Provider [phone] Reason for Visit * Reason Comments Establish Care * Consultation (Routine) - Closed Specialty Diagnoses / Procedures Referred By Suresh t Referred To Contact Endocrinology Diagnoses hyperthyroid Melba Ayala APRN [address] [place] [address] [facility] [address] [place] [phone] Referral ID Status Reason Start Date Expiration Date V isits Requested Visits Authorized [id number] Closed Consult, Test & [facility] 03/05/2019 03/04/2020 1 1 Encounter Details Date Type Department Care Team (Late st Contact Info) Description 05/15/2019 8:30 AM EDT Office [place] [address] Jalen Sheffield MD [facility] [place] [address] Ezequiel Bauer MD [facility] [place] [address] Hyperthyroidism; Rowena's thyroiditis; Vitamin D [...] file Gets together: Not on file Attends shinto service: Not on file Active member of [...] PGY4 Fellow, Endocrinology, Diabetes and Metabolism. Pager: [phone] * Ezequiel Bauer MD - 05/15/2019 8:30 [...] 9:57 AM EDT) Neutrophil % 50.2 % [facility] Neutrophil Absolute 2.91 1.70 - 6.10 x10(3)/[facility] Lymph % 34.8 % [facility] Lymphocytes Abs 2.0 0.9 - 3.2 x10(3)/[facility] Monocyte % 11.0 % [facility] Monocyte Abs 0.6 0.3 - 0.9 x10(3)/[facility] Eos % 2.9 % [facility] Eosinophils Abs 0.2 0.0 - 0.4 x10(3)/[facility] Basophil % 0.9 % [facility] Baso Absolute 0.0 0.0 - 0.1 x10(3)/[facility] Immature Gran % 0.20 % [facility] Comment: Immature granulocytes(IG's)percentage and absolute count will include metamyelocytes, myelocytes, and promyelocytes. Blood smears from CBCs yielding IG's will be scanned manually for concordance. If this scan disagrees with the automated IG or if promyelocytes are noted, a manual differential will be performed. Immature Gran Absolute 0.01 0.00 - 0.04 x10(3)/[facility] Blood specimen (specimen) 05/15/2019 9:57 AM EDT 05/15/2019 10:07 AM EDT Narrative Resulting Agency Comment Spec In Lab Ezequiel Bauer MD HEMATOLOGY ORDERABLE S [facility] [place] [address] * Hemogram (05/15/2019 9:57 AM EDT) White Blood Cell 5.8 4.0 - 9.5 x10(3)/[facility] Red Blood Cell 4.56 4.00 - 5.21 x10(6)/[facility] Hemoglobin 12.9 11.7 - 15.5 gm/dL [facility] Hematocrit 38.6 35.7 - 45.8 % [facility] Mean Cell Volume 84.6 82.6 - 94.4 fL [facility] Mean Cell Hemoglobin 28.3 27.1 - 32.0 pg [facility] Mean Cell Hemoglobin Concentration 33.4 31.7 - 35.0 gm/dL [facility] Platelet 236 145 - 357 x10(3)/[facility] RDW Standard Deviation 43.4 37.0 - 46.0 fL [facility] RDW coefficient of variation 14.0 11.5 - 14.1 % [facility] Mean Platelet Volume 10.8 7.6 - 12.9 fL [facility] NRBC% auto 0.0 % [facility] NRBC Absolute 0.000 0.000 - 0.000 x10(3)/mcL [facility] Blood specimen (specimen) 05/15/2019 9:57 AM EDT 05/15/2019 10:07 AM EDT Narrative Resulting Agency Comment Spec In Lab Ezequiel Bauer MD HEMATOLOGY ORDERABLE S Performing Organization Address City/[facility] Hospital/ZIP Co de Phone Number [facility] [place] [address] * Vitamin B12 (05/15/2019 9:57 AM EDT) Vitamin B12 362 232 - 1,245 pg/mL [facility] Blood specimen (specimen) 05/15/2019 9:57 AM EDT 05/15/2019 10:07 AM EDT Narrative Resulting Agency Comment Spec In Lab Jalen Sheffield MD CHEMISTRY ORDERAB LES Performing Organization Address [facility] Co de Phone Number [facility] [place] [address] * (ABNORMAL) Vitamin D, 25-Hydroxy (05/15/2019 9:57 AM EDT) Vitamin D Total 25 OH 23(L) 30 - 100 ng/mL [facility] Comment: Deficient <10 ng/mL Insufficient 10 to 29 ng/mL Sufficient 30 to 100 ng/mL Potential Intoxication >100 ng/mL According to the [place] National Osteoporosis Foundation, Vitamin D concentrations >30 ng/mL are sufficient to protect bone health. ??The National Kidney Foundation has similarly stated that patients with Vitamin D concentrations <30ng/mL should be considered to be insufficient or deficient. http://Audyssey.com/nkf-guidelines http://Audyssey.Phantom/nejm-VitD The [employer] i[employer] Vitamin D Immunoassay detects both 25-OH Vitamin D2 and 25-OH Vitamin D3, but only a total Vitamin D concentration is reported. Blood specimen (specimen) 05/15/2019 9:57 AM EDT 05/15/2019 11:15 AM EDT Narrative Resulting Agency Comment Spec In Lab Jalen Sheffield MD CHEMISTRY ORDERAB LES [facility] [place] [address] * Comprehensive metabolic panel (non-fasting) (05/15/2019 9:57 AM EDT) Glucose 69 65 - 199 mg/dL [facility] Comment:Diabetes: >=200 mg/d L plus symptoms Blood Urea Nitrogen 10 8 - 18 mg/dL [facility] Creatinine 0.88 0.70 - 1.20 mg/dL [facility] Sodium 139 135 - 145 mmol/L [facility] Potassium 4.2 3.5 - 5.0 mmol/L [facility] Comment: Please note: ??Patients with WBC >100,000 may have falsely elevated Potassium levels. ??For accurate Potassium quantification in these patients send serum separator tube (gold top) for subsequent determinations. ??Contact the Clinical Chemistry Laboratory if there are any questions. Chloride 102 98 - 107 mmol/L [facility] Carbon Dioxide 28 22 - 31 mmol/L [facility] Anion Gap 9 5 - 15 mmol/L [facility] Calcium 9.3 8.5 - 10.5 mg/dL [facility] Protein, Total 8.0 6.1 - 8.0 gm/dL [facility] Albumin 4.8 3.2 - 5.2 gm/dL [facility] Aspartate Aminotransferase 15 0 - 30 unit/L [facility] Alanine Aminotransferase 12 0 - 30 unit/L [facility] Alkaline Phosphatase 102 35 - 105 unit/L [facility] Bilirubin, Total 0.4 0.2 - 1.3 mg/dL [facility] Est Glomerular Filtration Rate 89 >=60 mL/min/1. 73 m?? [facility] Comment: The eGFR was calculated using the CKD-EPI equation. As with all creatinine based estimates of kidney function, eGFR values calculated with the CKD-EPI equation are not accurate in patients with acute kidney failure, extremes of body mass or the acutely ill. http://Attivio/[facility]MONDnk[facility] eGFR 104 >=60 mL/min/1. 73 m?? [facility] Comment: The eGFR was calculated using the CKD-EPI equation. As with all creatinine based estimates of kidney function, eGFR values calculated with the CKD-EPI equation are not accurate in patients with acute kidney failure, extremes of body mass or the acutely ill. [email or web address]/[facility]MONDnkf Blood specimen (specimen) 05/15/2019 9:57 AM EDT 05/15/2019 10:07 AM EDT Narrative Resulting Agency Comment Spec In Lab Jalen Sheffield MD CHEMISTRY ORDERAB LES Performing Organization Address City/[facility] Hospital/ZIP Co de Phone Number [facility] [place] [address] * T3 Total (05/15/2019 9:57 AM EDT) T3 Total 101 75 - 170 ng/dL [facility] Blood specimen (specimen) 05/15/2019 9:57 AM EDT 05/15/2019 10:07 AM EDT Narrative Resulting Agency Comment Spec In Lab Jalen Sheffield MD CHEMISTRY ORDERAB LES [facility] [place] [address] * (ABNORMAL) T4, free (05/15/2019 9:57 AM EDT) Free T4 0.92(L) 0.93 - 1.70 ng/dL [facility] Blood specimen (specimen) 05/15/2019 9:57 AM EDT 05/15/2019 10:07 AM EDT Narrative Resulting Agency Comment Spec In Lab Jalen Sheffield MD CHEMISTRY ORDERAB LES Performing Organization Address City/[facility] Hospital/ZIP Co de Phone Number [facility] [place] [address] * (ABNORMAL) TSH (05/15/2019 9:57 AM EDT) Thyroid Stimulating Hormone 9.98(H) 0.27 - 4.20 mcIU/mL [facility] Blood specimen (specimen) 05/15/2019 9:57 AM EDT 05/15/2019 10:07 AM EDT Narrative Resulting Agency Comment Spec In Lab Jalen Sheffield MD CHEMISTRY ORDERAB LES Performing Organization Address City/[facility]/ZIP Co de Phone Number [facility] [place] [address] documented in this encounter Visit Diagnoses Diagnosis Hyperthyroidism Thyrotoxicosis without mention of goiter or other cause, without mention of thyrotoxic crisis or storm Rowena's thyroiditis Chronic lymphocytic thyroiditis Vitamin D deficiency Unspecified vitamin D deficiency documented in this encounter Care Teams Paper Inserter Relationship Specialty Start Date End Date Kristina Zurita APRN [address] [place] [address] PCP - General Family Medicine 10/06/17 documented as of this encounter
--- OUTSIDE RECORDS SUMMARY | 2024-05-30 18:27 | XMS_ITS | Encounter Summary ---
Author Organization [facility] [place] [address] Care Team Providers Care Field Support Rep Name Role Phone Kristina Zurita APRN Primary Care Provider [phone] Reason for Visit * Reason Comments Medication Refill Encounter Details Date Type Department Care Team (Late st Contact Info) Description 09/09/2022 Refill [place] [address] Gisell Lai MD [facility] [place] [address] Rowena's thyroiditis Social History Tobacco Use Types Packs/Day Years Used Date Smoking Tobacco: Never Smokeless Tobacco: Never Sex and Gender Information Value Date Recorded Sex Assigned at Not on file Gender Identity Not on file Sexual Orientation Not on file documented as of this encounter Miscellaneous Notes * Telephone Encounter - Сергей Mejia RN - 09/09/2022 8:31 AM EST [facility] message sent to patient regarding need for follow up. documented in this encounter Plan of Treatment Not on file documented as of this encounter Visit Diagnoses Diagnosis Rowena's thyroiditis Chronic lymphocytic thyroiditis documented in this encounter Care Teams Field Support Rep Relationship Specialty Start Date End Date Kristina Zurita APRN [address] [place] [address] PCP - General Family Medicine 10/06/17 documented as of this encounter
--- OUTSIDE RECORDS SUMMARY | 2024-05-30 18:27 | XMS_ITS | Encounter Summary ---
[place] [address] Care Team Providers Care Gate Keeper Name Role Phone Kristina Zurita APRN Primary Care Provider [phone] Reason for Visit * Reason Onset Date Comments Medication Refill 05/11/2021 Encounter Details Date Type Department Care Team (Late st Contact Info) Description 05/11/2021 Refill [place] [id number] Adina Marcano, RN Rowena's thyroiditis Social History [...] thyroiditis documented in this encounter Care Teams Gate Keeper Relationship Specialty Start Date End Date Kristina Zurita APRN [address] [place] [address] PCP - General Family Medicine 10/06/17 documented as of this encounter
--- OUTSIDE RECORDS SUMMARY | 2024-05-30 18:27 | XMS_ITS | Continuity of Care Document ---
Author Organization [facility], [facility] Address [address] [place] [address] [address] [place] [address] Assessment No assessment recorded. Plan of Treatment Reminders Order Date Submit Date Provider Last Modified By Organization Details Last Modified Time Details Appointments Acute 10 2023 03:42P M Not available Not available Not available Annual Wellness Exam 40 2024 11:50A M Not available Not available Not available Lab rapid strep group A, throat 2023 024 [email or web address] [facility], [address] [place] [address], [address], [place], [address], 05/30/2024 16:39:12 culture, throat 2023 024 [email or web address] [facility] (Registration ), [address] [place] [address], [place], [address], 05/30/2024 17:06:03 Referral None recorded. Procedures None recorded. Surgeries None recorded. Imaging None recorded. Medication Orders dexametha sone 4 mg tablet 2023 024 [email or web address] [id number], [address] [facility], [place], [address], 05/30/2024 17:06:03 Patient TargetsNo targets recorded. Patient Instructions Encounter Date Encounter Id Patient Instructions Last Modified By Organization Details Last Modified Time 05/30/2024 [id number] 1. Your rapid strep is negative and thus a throat culture is sent for confirmatory measures. This will take 2 days to fully result and we will contact you when it is available. There is a chance we will not have these results back before we closed on Monday at 3. If that is the case I recommend checking your [facility] portal Monday evening and if test results are positive you could reach out to the on-call provider for [facility] and they should be able to send in a prescription over the phone. You will need to let them know the details of this case. They should be able to confirm it through our medical record system. If it is an [facility] MD covering call they should be able to see your test results in the [facility] lab system. 2. While here you were given 16 mg of dexamethasone a strong anti-inflammatory that should help reduce some of the swelling in the back of the throat. This typically takes a few hours to take effect and will work over 3-day period. I also recommend use of Tylenol and ibuprofen and/or hot/cool liquids to help soothe discomfort. 3. I do not expect you should have any significant sudden worsening between now and return of results. If so please go to the emergency department [email or web address] Not available 05/30/2024 16:49:13 Reason for Referral None Reported. Results Created Date Observation Date Name Description Value Unit Range Abnormal Flag Note LastModifiedBy Organization Detail LastModifiedTime 05/30/20 24 05/30/2024 rapid strep group A, throa t Strep negati ve Not Available [address], [place], [address], 05/30/2024 16:21:58 Result Notes None recorded. Problems Name Problem SNOMED Code Status Onset Date Resolution Date Notes Provider Name and Address Organization Details Recorded Time Family history of malignan t neoplasm 582108119 Active [address] [facility], [facility]. 4 13:52:13 Allergic rhinitis 09986256 Active 2017 William Nam [facility], [facility]. 4 13:51:44 Disorder of skin and/or subcutan eous tissue 52257593 Active 2017 Williamyoan Nam [facility], [facility] 4 13:52:04 Fatigue 50342626 Active 2018 [facility], [facility]. 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 2015 [facility] 4 13:52:31 Family history of breast cancer 795834329 Active 2015 [facility] 49 [facility] 4 13:53:51 Mild intermit tent asthma 222309582 Active 2015 [facility] 4 13:52:26 Postpart care Completed 201801/31/2023 Problem Code: Z39.2; Problem Code Type: ICD-10; Not Available [facility] 3 05:43:42 Common cold 88682690 Completed 201510/17/2016 Problem Code: J00; Problem Code Type: ICD-10; Not Available [facility] 3 05:43:42 General examinat ion of patient Completed 202001/31/2023 Problem Code: Z00.8; Problem Code Type: ICD-10; Not Available [facility] 3 05:43:42 Streptoc occal sore throat 53415928 Completed 202201/31/2023 Problem Code: J02.0; Problem Code Type: ICD-10; Not Available [facility] 3 05:43:42 Acute pharyngi tis 213948349 Completed 201610/21/2016 Problem Code: J02.9; Problem Code Type: ICD-10; Not Available [facility] 3 05:43:42 Thyrotox icosis 99037457 Completed 201806/21/2023 03/14/20 19 - Comments only - 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 TSH, T4 and T3 drawn at today's visit. Encourag ed Yesenia to notify her pediatri john that she is on this medicati on because she is breast-f eeding. Endocrin ology visit in April. Problem Code: E05.90; Problem Code Type: ICD-10; Not Available [facility] 3 05:43:42 Acute pharyngi tis 244557973 Completed 202201/31/2023 Problem Code: J02.9; Problem Code Type: ICD-10; Not Available [facility] 3 05:43:42 Acute upper respirat ory infectio n 84961698 Completed 201601/02/2017 Problem Code: J06.9; Problem Code Type: ICD-10; Not Available [facility] 3 05:43:42 Sore throat 104280573 Active [address], [place], [address] , [facility] 4 17:09:19 Problem Notes None recorded. Procedures Surgical History Date Name Laterality Status Provider Name and Address Organization Details Recorded Time 03/11/2024 Date of Last Pap Smear completed JESSICA Contreras, [facility] 03/12/2024 09:43:25 Imaging Results None recorded. Procedure Notes None recorded. Medical Equipment None Reported. Allergies Allergen ID Allergen Name Allergen Category Reaction Reaction Severity Criticality Documentation Date Start Date Code Code System Note Provider Name and Address Organization Details Recorded Time Medicinal product containin g penicilli n and acting as antibacte rial agent (product) medicatio n hives Not available Not available 08/04/20232015 07993 05 SNOMED Asmita Gomez RN null, [place] - [facility]. 16:08:31 Medications Name Sig Start Date Stop Date Status Note LastModified by Organization Details LastModified Time levothyroxi ne 25 mcg tablet Take 1 tab by mouth daily 2020 active Not Available Not Available Not Avai lable levothyroxi ne 75 mcg tablet TAKE ONE TABLET BY MOUTH EVERY DAY active Not Available Not Available No t Available levothyroxi ne 50 mcg tablet Take 1 tablet by mouth once a day 2020 active Not Available Not Available Not Avai lable cephalexin 500 mg capsule Take 1 capsule by mouth twice a day 01/28 completed Not Available Not Available Not Available dexamethaso ne 4 mg tablet Take 16 mg by oral route. 2023 active Not Available Not Available Not Avai lable methimazole 5 mg tablet Take 1 tablet by mouth daily immediatl y after breast feeding. 05/09 completed Not Available Not Available Not Available albuterol sulfate HFA 90 mcg/actuati on aerosol inhaler Inhale 1-2 puffs by mouth every 4-6 hours as needed 2023 active Not Available Not Available Not Avai lable fluticasone propionate 50 mcg/actuati on nasal spray,suspe nsion 1 spray each nostril daily 10/04 completed Not Available Not Available Not Available Claritin Liqui-Gel 10 mg capsule Take 1 tab by mouth daily prn 11/09 completed Not Available Not Available Not Available Plus (calcium carbonate) 27 mg iron-1 mg tablet Take 1 tab by mouth daily 11/09 completed Not Available Not Available Not Available Vitamin D3 50 mcg (2,000 unit) capsule 2 QD 2015 active Not Available Not Available Not Avai lable Aerochamber Mini use in conjuncti on with albuterol inhaler as needed 11/09 completed Not Available Not Available Not Available Vitals Date Recorded Body height Body mass index (BMI) Body weight Respiratory rate Oxygen saturation Oxygen saturation in Arterial blood by Pulse oximetry Heart rate Body temperature Systolic blood pressure Diastolic blood pressure Provider Name and Address Organization Details Last Updated DateTime 175.26 cm 30.8 kg/m2 31739.3 7 g 18 /min 99 % 99 % 79 /min 98.9 [degF] 109 mm[Hg] 74 mm[Hg] Asmita Gomez RN [facility] 16:08:23 Social History Question Answer Notes LastModified by Organizat ion Details LastModified Time Tobacco Smoking Status Never Smoker Madelaine Cedeño RN null, [facility] 02/07/2024 07:28:53 Would You Say That, In General, Your Health Is Good Information not available 02/07/2024 Women Aged 18-50 - Would You Like To Become In The Next Year? (Female Patients Only) No Information not available 02/07/2024 How Often Does Anyone, Including Family, Physically Hurt You? Never Information not available 02/07/2024 How Often Does Anyone, Including Family, Insult Or Talk Down To You? Never Information no t available 02/07/2024 How Often Does Anyone, Including Family, Threaten You With Harm? Never Information not available 02/07/2024 How Often Does Anyone, Including Family, Scream Or Curse At You? Never Information not available 02/07/2024 Within The Past 12 Months, You Worried That Your Food Would Run Out Before You Got Money To Buy More. Never True Information n ot available 02/07/2024 Within The Past 12 Months, The Food You Bought Just Didn't Last And You Didn't Have Money To Get More. Never True Information not available 02/07/2024 How Hard Is It For You To Pay For The Very Basics Like Food, Housing, Medical Care, And Heating? Would You Say It Is: Not Hard At All Information not available 02/07/2024 In The Past 12 Months, Has Lack Of Reliable Transportation Kept You From Medical Appointments, Meetings, Work Or From Getting Things Needed For Daily Living? No Information not available 02/07/2024 What Is Your Housing Situation Today? I Have Housing. Information not available 02/07/2024 How Often In The Past Year Have You Used Marijuana (including Smoking, Vaping, Dabbing, Or Edibles)? Never Information not available 02/07/2024 How Often In The Past Year Have You Used Prescription Medications That Were Not Prescribed To You? Never Information not available 02/07/2024 How Often In The Past Year Have You Taken Your Own Prescription Medication More Than The Way It Was Prescribed Or For Different Reasons Than Its Intended Purpose? Never Information not available 02/07/2024 How Often In The Past Year Have You Used Other Drugs (for Example, Heroin, Cocaine, Meth, Salvia, Inhalants)? Never Information not available 02/07/2024 Have You Ever Used IV Drugs? No Information not available 02/07/2024 Date Of Most Recent SBINS 02/07/2024 Information not available 02/07/2024 What Was The Date Of Your Most Recent Tobacco Screening? 05/30/2024 Information n ot available 05/30/2024 Has Tobacco Cessation Counseling Been Provided? Yes Information not available 02/07/2024 On What Date Was Tobacco Cessation Counseling Provided? 05/30/2024 Information not available 05/30/2024 Do You Or Have You Ever Used Any Other Forms Of Tobacco Or Nicotine? No [facility] not available 02/07/2024 Sex: Female Functional Status None recorded. Mental Status None recorded. Family History Relationship Description Onset Age of this Age Resolved Age Notes Paternal Grandfather Family history of acute medical disorder dementia Paternal Grandmother Family history of malignant neoplasm pancreatic cancer Maternal Grandfather Family history of diabetes mellitus type 1 Maternal Grandmother Family history of breast cancer 1 gene mutation Notes:*Problem: Mother- kavon ng- well Father- living- well Siblings- 1 brother- well Children- 1- cleft lip HTN: no HLD: no CAD: no DM: MGF Breast CA: MGM Colon CA: no Uterine/ovarian CA: no Medical History No medical history recorded. Gynecological History Statement/Question Response Date of Last Pap Smear 03/11/2024 Obstetrics History GPAL:G 0 P 0 0 0 0 Immunizations Vaccine Type Date Status Provider Name and Address Organization Details Recorded Time MMR 05/29/1998 completed Not Available [facility] 05:25:00 MMR 06/03/1992 completed Not Available [facility] 05:25:01 DTaP, unspecified formulation 1991 completed Not Available [facility] 08/04/2023 05:25:01 DTaP, unspecified formulation 05/08/1996 completed Not Available [facility] 08/04/2023 05:25:01 DTaP, unspecified formulation 1991 completed Not Available [facility] 08/04/2023 05:25:01 DTaP, unspecified formulation 06/12/1992 completed Not Available [facility] 08/04/2023 05:25:01 DTaP, unspecified formulation 1991 completed Not Available [facility] 08/04/2023 05:25:01 meningococcal ACWY, unspecified formulation 01/21/2009 completed Not Available [facility] 08/04/2023 05:25:01 Tdap 03/16/2016 completed Not Available [facility] 05:25:01 HPV, unspecified formulation 01/21/2009 completed Not Available [facility] 08/04/2023 05:25:01 Td(adult) unspecified formulation 05/04/2005 completed Not Available [facility] 08/04/2023 05:25:01 Influenza, split virus, quadrivalent, PF 10/25/2022 completed Not Available [facility] 08/04/2023 05:25:01 Influenza, split virus, quadrivalent, PF 09/22/2021 completed Not Available [facility] 08/04/2023 05:25:02 Hib, unspecified formulation 10/06/1998 completed Not Available [facility] 08/04/2023 05:25:02 Hib, unspecified formulation 1991 completed Not Available [facility] 08/04/2023 05:25:02 Hib, unspecified formulation 05/27/1999 completed Not Available [facility] 08/04/2023 05:25:02 Hib, unspecified formulation 1991 completed Not Available [facility] 08/04/2023 05:25:02 Hib, unspecified formulation 06/03/1992 completed Not Available [facility] 08/04/2023 05:25:02 Hib, unspecified formulation 07/29/1998 completed Not Available [facility] 08/04/2023 05:25:02 Hib, unspecified formulation 1991 completed Not Available [facility] 08/04/2023 05:25:02 COVID-19, mRNA, LNP-S, PF, 30 mcg/0.3 mL dose 10/06/2020 completed Not Available [facility] 08/04/2023 05:25:02 COVID-19, mRNA, LNP-S, PF, 30 mcg/0.3 mL dose 08/16/2021 completed Not Available [facility] 08/04/2023 05:25:02 COVID-19, mRNA, LNP-S, PF, 30 mcg/0.3 mL dose 09/15/2020 completed Not Available [facility] 08/04/2023 05:25:03 influenza, unspecified formulation 05/26/2016 completed Not Available [facility] 08/04/2023 05:25:03 influenza, unspecified formulation 07/10/2017 completed Not Available [facility] 08/04/2023 05:25:03 polio, unspecified formulation 1991 completed Not Available [facility] 08/04/2023 05:25:03 polio, unspecified formulation 05/08/1996 completed Not Available [facility] 08/04/2023 05:25:03 polio, unspecified formulation 1991 completed Not Available [facility] 08/04/2023 05:25:03 polio, unspecified formulation 08/12/1992 completed Not Available [facility] 08/04/2023 05:25:03 Past Encounters Encounter ID Performer Location Encounter Start Date Encounter Closed Date Diagnosis/Indication Diagnosis SNOMED-CT Code Diagnosis ICD10 Code [id number] JAC FORRESTER [facility] [address] [place] [address] 05/16/2024 14:51:28 05/16/2024 15:00:53 Hypothyroidism 74038334 E03.9 [id number] MAREK HAUSER PA-C [address] [place] [address] 05/30/2024 15:44:08 05/30/2024 16:51:13 Sore throat 718394546 J02.9 Health Concerns Section Related Observation LastModified by Organization Detai ls LastModified Time None Recorded Concern Status LastModified by Organization Details LastModified Time None Recorded Payers Encounter Date Sequence Insurance Name Policy Number Policy Beaulieu Covered Member ID Beaulieu Member ID Guarantor Name 05/30/2024 1 [facility] Yesenia Aguilar [id number] Yesenia Aguilar Notes Date Note Type Note Provider Name and Address Organization Details Recorded Time 05/30/2024 text/html HPI Notes: Yesenia is a 34-year-old female who presents with concerns for strep throat. She woke with sore throat yesterday. States it feels similar to previous strep. Also has some pain radiating to her ears. Has not had drainage from the ears. Has not had fevers or chills. Some nausea no vomiting. Normal bowel bladder. Is having discomfort with eating but able to do so. Managing oral secretions and drinking fluids. Minimal to no cough. No known sick contacts but kids did just return to school. [address], [place], [address], [facility]. 05/30/2024 17:09:31 OBGyn Episode No OBEpisode recorded.
--- OUTSIDE RECORDS SUMMARY | 2024-05-30 18:27 | XMS_ITS | Encounter Summary ---
Author Organization [facility] Address [facility] [place] [address] Care Team Providers Care Electromechanical Equipment Tester Name Role Phone Kristina Zurita APRN Primary Care Provider [phone] Reason for Visit * Reason Comments Skin Check * Consultation (Routine) - Closed Specialty Diagnoses / Procedures Referred By Suresh rangel Referred To Contact Dermatology Diagnoses Routine general medical examination at a health care facility Mebla Ayala APRN [address] [place] [address] [facility] [address] [place] [address] Referral ID Status Reason Start Date Expiration Date V isits Requested Visits Authorized [id number] Closed Consult, Test & Treat PCP Updated and/or Approved 02/02/2023 02/02/2024 6 6 Encounter Details Date Type Department Care Team (Late st Contact Info) Description 05/09/2023 3:40 PM EDT Office Visit Dermatology at [facility] [address] [place] [address] Marni Andersen MD [facility] DR LYNDA [place] [address] Seborrheic keratoses; Multiple benign melanocytic nevi of [...] history Unknown Social History 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 I performed the above scribed service and agree with the accuracy of the documentation in this encounter. Reviewed and signed by: Marni Andersen MD Dermatology [facility] Patient seen and evaluated with staff endband cutter hand: Nancy Francisco MD Department of Dermatology [facility] * Nancy Francisco MD - 05/09/2023 3:40 PM EDT I was the supervising physician working with dermatology resident Dr. Andersen in the dermatology clinic during this patient visit. The level of resident supervision for this patient visit was indirect supervision with direct supervision immediately available. (definition: [facility] Policy Statement on Graduate Medical Education, [...] Routine Routine general medical examination at a [facility] facility Ordered: 02/02/2023 documented as of this encounter Visit Diagnoses Diagnosis Seborrheic keratoses Multiple benign melanocytic nevi of upper and lower extremities and trunk Lentigines Other dyschromia Redmond angioma Nevus, non-neoplastic Screening for malignant neoplasm of skin Screening for malignant neoplasm of the skin documented in this encounter Care Teams Electromechanical Equipment Tester Relationship Specialty Start Date End Date Kristina Zurita APRN [address] [place] [address] PCP - General Family Medicine 10/06/17 documented as of this encounter
--- OUTSIDE RECORDS SUMMARY | 2024-05-30 18:27 | XMS_ITS | Clinical Summary ---
[place] [address] Care Team Providers Care Foundry Finisher Name Role Phone Kristina Zurita APRN Primary Care Provider [phone] Allergies Active Allergy Reactions Criticality Noted Date [...] PAP Smear 2021 Covid-19 Vaccine ( - 2022- season) 2024 Influenza (Flu) vaccine (1 o f 1 - Influenza standard series) 05/26/2024 Care Teams Foundry Finisher Relationship Specialty Start Date End Date Kristina Zurita APRN [address] [place] [address] PCP - General Family Medicine 10/06/17
--- OUTSIDE RECORDS SUMMARY | 2024-05-30 18:27 | XMS_ITS | Clinical Summary ---
Author Organization [facility] Address [address] [place] [address] Care Team Providers Care Automatic Blocker Name Role Phone Unavailable Primary Care Provider [...]
--- OUTSIDE RECORDS SUMMARY | 2024-05-30 18:27 | XMS_ITS | Encounter Summary ---
[place] [address] Care Team Providers Care Rug Drying Machine Operator Name Role Phone Kristina Zurita APRN Primary Care Provider [phone] Encounter Details Date Type Department Care Team (Late st Contact Info) Description 08/28/2020 [place] [address] Ezequiel Bauer MD [facility] [place] [address] Vitamin D deficiency Social History Tobacco Use [...] deficiency documented in this encounter Care Teams Rug Drying Machine Operator Relationship Specialty Start Date End Date Kristina Zurita APRN [address] [place], [place] [address] PCP - General Family Medicine 10/06/17 documented as of this encounter
--- OUTSIDE RECORDS SUMMARY | 2024-05-30 18:27 | XMS_ITS | Data Portability ---
Author Organization [place] [facility] [place] [address] Assessment No assessment recorded. Plan of Treatment Reminders Order Date Submit Date Provider Last Modified By Organization Details Last Modified Time Details Appointments Acute 10 2023 03:42P M Not available Not available Not available Annual Wellness Exam 40 2024 11:50A M Not available Not available Not available Lab TSH, serum, reflex free T4 2023 024 [email or web address] [facility] (Registration ), [address] [place] [address] [place], [address], 02/08/2024 08:17:01 TSH + free T4, serum - 1Y 2023 024 CARLA [facility] (Registration ), [address] [place] [address] [place], [address], 05/17/2024 09:05:13 rapid strep group A, throat 2023 024 [email or web address] [facility], [address] [place] [address], [address], [place], [address], 05/30/2024 16:39:12 culture, throat 2023 024 [email or web address] [facility] (Registration ), [address] [place] [address] [place], [address], 05/30/2024 17:06:03 Referral None recorded. Procedures None recorded. Surgeries None recorded. Imaging None recorded. Medication Orders albuterol sulfate HFA 90 mcg/actua tion aerosol inhaler 2023 024 [facility], [address] [place], [address], 02/07/2024 08:12:57 dexametha sone 4 mg tablet 2023 024 [email or web address] [facility], [address] [place], [address], 05/30/2024 17:06:03 Patient TargetsNo targets recorded. Patient Instructions Encounter Date Encounter Id Patient Instructions Last Modified By Organization Details Last Modified Time 05/30/2024 [id number] 1. Your rapid strep is negative and thus a throat culture is sent for confirmatory measures. This will take 2 days to fully result and we will contact you when it is available. There is a chance we will not have these results back before we closed on Monday at 3. If that is the case I recommend checking your [facility] portal Monday evening and if test results are positive you could reach out to the on-call provider for [facility] and they should be able to send in a prescription over the phone. You will need to let them know the details of this case. They should be able to confirm it through our medical record system. If it is an [facility] MD covering call they should be able to see your test results in the [facility] lab system. 2. While here you were [...] so please go to the emergency department [email or web address] Not available 05/30/2024 16:49:13 Reason for Referral None Reported. Results Created Date Observation Date Name Description Value Unit Range Abnormal Flag Note LastModifiedBy Organization Detail LastModifiedTime 02/07/20 24 02/07/2024 TSH (W/RE F FT4) TSH (w/ref FT4) 0.37 uIU/m L 0.36-3 .74 normal Not Available [address] [place], [address] 02/07/2024 15:03:42 05/16/20 24 05/16/2024 TSH TSH 3.42 uIU/m L 0.36-3 .74 normal Not Available [facility] (Registration ) [address] [place] [address] [place], [address], 05/16/2024 21:52:16 05/16/20 24 05/16/2024 FREE T4 free T4 1.27 NG/dL 0.76-1 .46 normal Not Available [facility] (Registration ) [address] [place] [address] [place], [address], 05/16/2024 21:52:17 05/30/20 24 05/30/2024 rapid strep group A, throa t Strep negati ve Not Available [address], [place], [address], 05/30/2024 16:21:58 Result Notes None recorded. Problems Name Problem SNOMED Code Status Onset Date Resolution Date Notes Provider Name and Address Organization Details Recorded Time Family history of malignan t neoplasm 033946396 Active 2017 [facility] 4 13:52:13 Allergic rhinitis 73506695 Active 2017 [facility] 4 13:51:44 Disorder of skin and/or subcutan eous tissue 27686259 Active 2017 [facility] 4 13:52:04 Fatigue 52353592 Active 2018 [facility] 4 13:52:18 Hypothyr oidism 24847672 Active 2018 [facility] 4 13:52:22 Anxiety disorder 460019456 Active 2020 [facility] 4 13:51:52 Autoimmu ne thyroidi tis 96120525 Active 2022 [facility] 4 13:51:58 Adult health examinat ion Active 2022 [facility] 4 13:51:38 Scoliosi s deformit y of spine 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 Active 2015 [facility] 4 13:52:31 Family history of breast cancer 061208295 Active 2015 [facility] at 49 [facility] 4 13:53:51 Mild intermit tent asthma 450982552 Active 2015 [facility] 4 13:52:26 Postpart um care Completed 201801/31/2023 Problem Code: Z39.2; Problem Code Type: ICD-10; Not Available [facility] 3 05:43:42 Common cold 95858729 Completed 201510/17/2016 Problem Code: J00; Problem Code Type: ICD-10; Not Available [facility] 3 05:43:42 General examinat ion of patient Completed 202001/31/2023 Problem Code: Z00.8; Problem Code Type: ICD-10; Not Available [facility] 3 05:43:42 Streptoc occal sore throat 46872927 Completed 202201/31/2023 Problem Code: J02.0; Problem Code Type: ICD-10; Not Available [facility] 3 05:43:42 Acute pharyngi tis 193602505 Completed 201610/21/2016 Problem Code: J02.9; Problem Code Type: ICD-10; Not Available [facility] 3 05:43:42 Thyrotox icosis 62773984 Completed 201806/21/2023 03/14/20 19 - Comments only - 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 TSH, T4 and T3 drawn at today's visit. Encourag ed Yesenia to notify her pediatri john that she is on this medicati on because she is breast-f eeding. Endocrin ology visit in April. Problem Code: E05.90; Problem Code Type: ICD-10; Not Available [facility] 3 05:43:42 Acute pharyngi tis 521102758 Completed 202201/31/2023 Problem Code: J02.9; Problem Code Type: ICD-10; Not Available [facility] 3 05:43:42 Acute upper respirat ory infectio n 00626831 Completed 201601/02/2017 Problem Code: J06.9; Problem Code Type: ICD-10; Not Available [facility] 3 05:43:42 Sore throat 993085738 Active 2023 MAREK HAUSER PA-C [address] [place] [address] , [place], [address] , [facility] 17:09:19 Problem Notes None recorded. Procedures Surgical History Date Name Laterality Status Provider Name and Address Organization Details Recorded Time 03/11/2024 Date of Last Pap Smear completed Madelaine Cedeño RN [facility], [facility] 03/12/2024 09:43:25 Imaging Results None [...] n hives Not available Not available 08/04/20232015 91841 05 JESSICA Rueda, [facility] 4 16:08:31 Medications Name Sig Start Date Stop [...] Available Not Available Vitals Date Recorded Body temperature Oxygen saturation Oxygen saturation in Arterial blood by Pulse oximetry Heart rate Body weight Systolic blood pressure Diastolic blood pressure Provider Name and Address Organization Details Last Updated DateTime 4 97.2 [degF] 98 % 98 % 90 /min 10288.3 7 g 102 mm[Hg] 76 mm[Hg] Madelaine Cedeño RN [place] [facility]. 07:30:15 Date Recorded Body height Body mass index (BMI) Body weight Respiratory rate Oxygen saturation Oxygen saturation in Arterial blood by Pulse oximetry Heart rate Body temperature Systolic blood pressure Diastolic blood pressure Provider Name and Address Organization Details Last Updated DateTime 175.26 cm 30.8 kg/m2 05724.3 7 g 18 /min 99 % 99 % 79 /min 98.9 [degF] 109 mm[Hg] 74 mm[Hg] Asmita Gomez RN [facility] 4 16:08:23 Date Recorded Systolic blood pressure Diastolic blood pressure Provider Name and Address Organization Details Last Updated DateTime 05/16/2024 104 mm[Hg] 60 mm[Hg] JAC FORRESTER CMA [facility] 05/16/2024 14:58:20 Social History Question Answer Notes LastModified by Organizat ion Details LastModified Time Tobacco Smoking Status Never Smoker Madelaine Cedeño RN null, [facility] 02/07/2024 07:28:53 Would You Say [...] Has Tobacco Cessation [facility] Been [facility]? [facility] available 02/07/2024 On What Date Was Tobacco Cessation Counseling Provided? 05/30/2024 Information not available 05/30/2024 Do You Or Have You Ever Used Any Other Forms Of Tobacco Or Nicotine? No [facility] Information not available 02/07/2024 Sex: Female Functional [...] Recorded Time MMR 05/29/1998 completed Not Available [facility] 05:25:00 MMR 06/03/1992 completed Not Available [facility] 05:25:01 DTaP, unspecified formulation 1991 completed Not Available [facility] 08/04/2023 05:25:01 DTaP, unspecified formulation 05/08/1996 completed Not Available [facility] 08/04/2023 05:25:01 DTaP, unspecified formulation 1991 completed Not Available [facility] 08/04/2023 05:25:01 DTaP, unspecified formulation 06/12/1992 completed Not Available [facility] 08/04/2023 05:25:01 DTaP, unspecified formulation 1991 completed Not Available [facility] 08/04/2023 05:25:01 meningococcal ACWY, unspecified formulation 01/21/2009 completed Not Available [facility] 08/04/2023 05:25:01 Tdap 03/16/2016 completed Not Available [facility] 05:25:01 HPV, unspecified formulation 01/21/2009 completed Not Available [facility] 08/04/2023 05:25:01 Td(adult) unspecified formulation 05/04/2005 completed Not Available [facility] 08/04/2023 05:25:01 Influenza, split virus, quadrivalent, PF 10/25/2022 completed Not Available [facility] 08/04/2023 05:25:01 Influenza, split virus, quadrivalent, PF 09/22/2021 completed Not Available [facility] 08/04/2023 05:25:02 Hib, unspecified formulation 10/06/1998 completed Not Available [facility] 08/04/2023 05:25:02 Hib, unspecified formulation 1991 completed Not Available [facility] 08/04/2023 05:25:02 Hib, unspecified formulation 05/27/1999 completed Not Available [facility] 08/04/2023 05:25:02 Hib, unspecified formulation 1991 completed Not Available [facility] 08/04/2023 05:25:02 Hib, unspecified formulation 06/03/1992 completed Not Available [facility] 08/04/2023 05:25:02 Hib, unspecified formulation 07/29/1998 completed Not Available [facility] 08/04/2023 05:25:02 Hib, unspecified formulation 1991 completed Not Available [facility] 08/04/2023 05:25:02 COVID-19, mRNA, LNP-S, PF, 30 mcg/0.3 mL dose 10/06/2020 completed Not Available [facility] 08/04/2023 05:25:02 COVID-19, mRNA, LNP-S, PF, 30 mcg/0.3 mL dose 08/16/2021 completed Not Available [facility] 08/04/2023 05:25:02 COVID-19, mRNA, LNP-S, PF, 30 mcg/0.3 mL dose 09/15/2020 completed Not Available [facility] 08/04/2023 05:25:03 influenza, unspecified formulation 05/26/2016 completed Not Available [facility] 08/04/2023 05:25:03 influenza, unspecified formulation 07/10/2017 completed Not Available [facility] 08/04/2023 05:25:03 polio, unspecified formulation 1991 completed Not Available [facility] 08/04/2023 05:25:03 polio, unspecified formulation 05/08/1996 completed Not Available [facility] 08/04/2023 05:25:03 polio, unspecified formulation 1991 completed Not Available [facility] 08/04/2023 05:25:03 polio, unspecified formulation 08/12/1992 completed Not Available [facility] 08/04/2023 05:25:03 Past Encounters Encounter ID Performer Location Encounter Start Date Encounter Closed Date Diagnosis/Indication Diagnosis SNOMED-CT Code Diagnosis ICD10 Code [id number] ALANNA CHANCE [address] [address] 02/07/2024 07:22:10 02/07/2024 08:43:11 Family history of breast cancer 501919074 Z80.3 Hypothyroidism 18547074 E03.9 Mild inter mittent asthma 800003997 J45.20 Adult heal th examination 673714322 Z00.00 Allergic rhinitis 350988 04 J30.9 [id number] JAC FORRESTER CMA [facility] [address] [place] [address] 05/16/2024 14:51:28 05/16/2024 15:00:53 Hypothyroidism 97602774 E03.9 [id number] MAREK HAUSER PA-C [address] [place] [address] 05/30/2024 15:44:08 05/30/2024 16:51:13 Sore throat 713083049 J02.9 Health Concerns Section Related Observation LastModified by Organization Detai ls LastModified Time None Recorded Concern Status LastModified by Organization Details LastModified Time None Recorded Advance Directives Directive None Recorded Payers Encounter Date Sequence Insurance Name Policy Number Policy Beaulieu Covered Member ID Beaulieu Member ID Guarantor Name 02/07/2024 1 [place] Yesenia Aguilar [id number] Yesenia Malloryl 05/16/2024 1 [place] Yesenia Lauren [id number] Yesenia Lauren 05/30/2024 1 [place] Yesenia Malloryl [id number] Yesenia Aguilar Notes Date Note Type Note Provider Name and Address Organization Details Recorded Time 02/07/2024 text/html HPI Notes: Here today for annual exam. ALANNA CHANCE [address], [place], [address], [facility]. 02/07/2024 09:34:30 05/30/2024 text/html HPI Notes: Yesenia is a [...] but kids did just return to school. MAREK HAUSER PA-C [address], [place], [address], [facility]. 05/30/2024 17:09:31 OBGyn Episode No OBEpisode recorded.
--- OUTSIDE RECORDS SUMMARY | 2024-05-30 18:27 | XMS_ITS | Encounter Summary ---
Author Organization [facility] [place] [address] Care Team Providers Care Php Developer Name Role Phone Kristina Zurita APRN Primary Care Provider [phone] Encounter Details Date Type Department Care Team (Late st Contact Info) Description 10/19/2022 3:00 PM EST Office [place] [address] Gisell Lai MD [facility] [place] [address] Rowena's thyroiditis Social History Tobacco Use Types [...] d/w Dr. Alexis Lai Endocrinology Fellow Pager [phone] cc: Kristina Zurita APRN * Jose Montero MD - 10/19/2022 3:00 PM EST I have reviewed Dr Lai's history and I agree with the details as written. The assessment and plan were formulated in discussion with me and I agree with them as documented. Orders Placed This Encounter Procedures ??? T4, free ??? TSH Jose Montero MD Air Support Operations Operatorplant attendant or assistant operator Endocrinology Section [facility] documented in this encounter Miscellaneous Notes * Addendum Note - Jose Montero MD - 10/19/2022 3:00 PM ESTAddended by: JOSE MONTERO on: 10/22/2022 04:48 PM Modules accepted: Level of Service documented in this encounter Plan of Treatment Not on file documented as of this encounter Visit Diagnoses Diagnosis Rowena's thyroiditis Chronic lymphocytic thyroiditis documented in this encounter Care Teams Php Developer Relationship Specialty Start Date End Date Kristina Zurita APRN [address] [place] [address] PCP - General Family Medicine 10/06/17 documented as of this encounter
--- OUTSIDE RECORDS SUMMARY | 2024-05-30 18:27 | XMS_ITS | Encounter Summary ---
[place] [address] Care Team Providers Care Ic Designer Custom Name Role Phone Kristina Zurita APRN Primary Care Provider [phone] Reason for Referral * Consultation (Routine) - Closed Specialty Diagnoses / Procedures Referred By Suresh rangel Referred To Contact Dermatology Diagnoses Routine general medical examination at a health care facility Melba Ayala APRN [address] [place] [address] [facility] Dermatology [address] [place] [address] Referral ID Status Reason Start Date Expiration Date V isits Requested Visits Authorized [id number] Closed Consult, Test & Treat PCP Updated and/or Approved 02/02/2023 02/02/2024 6 6 Encounter Details Date Type Department Care Team (Latest Contact Info) Description 02/02/2023 Transcribe Orders eDH Incoming Referrals [phone] Melba Ayala APRN [address] [place], [place] [id number] Routine general medical examination at a health [...] facility documented in this encounter Care Teams Ic Designer Custom Relationship Specialty Start Date End Date Kristina Zurita APRN [address] [place] [address] PCP - General Family Medicine 10/06/17 documented as of this encounter
--- OUTSIDE RECORDS SUMMARY | 2024-05-30 18:27 | XMS_ITS | Encounter Summary ---
Author Organization [place] [address] Care Team Providers Care Supervisor Esters And Emulsifiers Name Role Phone Kristina Zurita APRN Primary Care Provider [phone] Encounter Details Date Type Department Care Team (Late st Contact Info) Description 03/05/2020 Orders [place] [address] Ezequiel Bauer MD [facility] [place] [address] Vitamin D deficiency; Rowena's thyroiditis Social History [...] thyroiditis documented in this encounter Care Teams Supervisor Esters And Emulsifiers Relationship Specialty Start Date End Date Kristina Zurita APRN [address] [place] [address] PCP - General Family Medicine 10/06/17 documented as of this encounter
--- OUTSIDE RECORDS SUMMARY | 2024-05-30 18:27 | XMS_ITS | Encounter Summary ---
Author Organization [facility] [place] [address] Care Team Providers Care College Basketball Coach Name Role Phone Kristina Zurita APRN Primary Care Provider [phone] Encounter Details Date Type Department Care Team (Late st Contact Info) Description 06/24/2019 Orders [place] [address] Ezequiel Bauer MD [facility] DR ENDOCR[place] [address] Rowena's thyroiditis; Vitamin D deficiency Social History [...] deficiency documented in this encounter Care Teams College Basketball Coach Relationship Specialty Start Date End Date Kristina Zurita APRN [address] [place] [address] PCP - General Family Medicine 10/06/17 documented as of this encounter
--- OUTSIDE RECORDS SUMMARY | 2024-05-30 18:27 | XMS_ITS | Encounter Summary ---
[place] [address] Care Team Providers Care Ring Barker Operator Name Role Phone Kristina Zurita APRN Primary Care Provider [phone] Encounter Details Date Type Department Care Team (Late st Contact Info) Description 08/24/2021 Telephone [place] [address] Brooke Headley Social History Tobacco Use Types [...] your call. Please call pt back at [phone] * Telephone Encounter - Brooke Headley - 08/24/2021 3:32 PM EST Patient returning your call. Will keep phone on her [phone] best number to reach her at documented in this encounter Plan of Treatment Not on file documented as of this encounter Visit Diagnoses Not on filedocumented in this encounter Care Teams Ring Barker Operator Relationship Specialty Start Date End Date Kristina Zurita APRN [address] [place] [address] PCP - General Family Medicine 10/06/17 documented as of this encounter
--- OUTSIDE RECORDS SUMMARY | 2024-05-30 18:27 | XMS_ITS | Referral Summary ---
Author Organization [facility] Address [address] [place] [address] Care Team Providers Care Subassembly Assembler Name Role Phone Unavailable Primary Care Provider [...]
--- OUTSIDE RECORDS SUMMARY | 2024-05-30 18:27 | XMS_ITS | Encounter Summary ---
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; Chronic fatigue [...] Stimulating Hormone 4.70(H) 0.27 - 4.20 mcIU/mL [facility] Comment: Reference Interval (mcIU/mL): Females: ??First Trimester: 0.23-3.88 ??Second Trimester: 0.22-3.90 ??Third Trimester: 0.44-4.66 Blood 08/24/2021 10:5 5 AM EST 08/24/2021 11:11 AM EST Narrative Resulting Agency Comment Spec In Lab Jalen Sheffield MD CHEMISTRY ORDERAB LES Performing Organization Address [facility] [place] [address] [facility] Co de Phone Number [facility] [place] [address] * T4, free (08/24/2021 10:55 AM EST) Free T4 1.29 0.93 - 1.70 ng/dL [facility] Comment: Reference Interval (ng/dL): Females: ??First Trimester: 0.97-1.68 ??Second Trimester: 0.77-1.51 ??Third Trimester: 0.77-1.49 Blood 08/24/2021 10:5 5 AM EST 08/24/2021 11:11 AM EST Narrative Resulting Agency Comment Spec In Lab Jalen Sheffield MD CHEMISTRY ORDERAB LES Performing Organization Address City/[facility] [address]/[facility] Co de Phone Number [facility] [place] [address] * T3 Total (08/24/2021 10:55 AM EST) T3 Total 109 75 - 170 ng/dL [facility] Blood 08/24/2021 10:5 5 AM EST 08/24/2021 11:11 AM EST Narrative Resulting Agency Comment Spec In Lab Jalen Sheffield MD CHEMISTRY ORDERAB LES Performing Organization Address City/[facility] [address]/ZIP Co de Phone Number [facility] [place] [address] * Vitamin D, 25-Hydroxy (08/24/2021 10:55 AM EST) Vitamin D Total 25 OH 25 21 - 100 ng/mL [facility] Vit D Interp Insufficient [facility] Blood 08/24/2021 10:5 5 AM EST 08/24/2021 11:11 AM EST Narrative Resulting Agency Comment Spec In Lab Jalen Sheffield MD CHEMISTRY ORDERAB LES Performing Organization Address City/[facility] [address]/[facility] Co de Phone Number [facility] [place] [address] * Vitamin B12 (08/24/2021 10:55 AM EST) Vitamin B12 366 232 - 1,245 pg/mL [facility] Blood 08/24/2021 10:5 5 AM EST 08/24/2021 11:11 AM EST Narrative Resulting Agency Comment Spec In Lab Jalen Sheffield MD CHEMISTRY ORDERAB LES Performing Organization Address City/[facility] [address]/ZIP Co de Phone Number [facility] [place] [address] documented in this encounter Visit Diagnoses Diagnosis 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
--- OUTSIDE RECORDS SUMMARY | 2024-05-30 18:27 | XMS_ITS | Encounter Summary ---
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 Kristina Zurita APRN for: hypothyroidism. Patient's previous record as are the lab results are reviewed. HISTORY OF PRESENT ILLNESS: Yseenia Aguilar??is a 31 y/o F??with no significant [...] d/w Dr. Yohannes Lai Endocrinology Fellow Pager [phone] cc: Kristina Zurita APRN * Jalen Sheffield [...] Vitamin B12 366 232 - 1,245 pg/mL [facility] Blood 08/24/2021 10:5 5 AM EST 08/24/2021 11:11 AM EST Narrative Resulting Agency Comment Spec In Lab Jalen Sheffield MD CHEMISTRY ORDERAB LES Performing Organization Address City/[facility]/ZIP Co de Phone Number [facility] [place] [address] * Vitamin D, 25-Hydroxy (08/24/2021 10:55 AM EST) Pathologist [facility] Vitamin D Total 25 OH 25 21 - 100 ng/mL [facility] Vit D Interp Insufficient [facility] Blood 08/24/2021 10:5 5 AM EST 08/24/2021 11:11 AM EST Narrative Resulting Agency Comment Spec In Lab Jalen Sheffield MD CHEMISTRY ORDERAB LES Performing Organization Address City/[facility]/ZIP Co de Phone Number [facility] [place] [address] * T3 Total (08/24/2021 10:55 AM EST) T3 Total 109 75 - 170 ng/dL [facility] Blood 08/24/2021 10:5 5 AM EST 08/24/2021 11:11 AM EST Narrative Resulting Agency Comment Spec In Lab Jalen Sheffield MD CHEMISTRY ORDERAB LES Performing Organization Address City/[facility] Co de Phone Number [facility] [place] [address] * T4, free (08/24/2021 10:55 AM EST) Free T4 1.29 0.93 - 1.70 ng/dL [facility] Comment: Reference Interval (ng/dL): Females: ??First Trimester: 0.97-1.68 ??Second Trimester: 0.77-1.51 ??Third Trimester: 0.77-1.49 Blood 08/24/2021 10:5 5 AM EST 08/24/2021 11:11 AM EST Narrative Resulting Agency Comment Spec In Lab Jalen Sheffield MD CHEMISTRY ORDERAB LES Performing Organization Address [facility] Co de Phone Number [facility] [place] [address] * (ABNORMAL) TSH (08/24/2021 10:55 AM EST) Thyroid Stimulating Hormone 4.70(H) 0.27 - 4.20 mcIU/mL [facility] Comment: Reference Interval (mcIU/mL): Females: ??First Trimester: 0.23-3.88 ??Second Trimester: 0.22-3.90 ??Third Trimester: 0.44-4.66 Blood 08/24/2021 10:5 5 AM EST 08/24/2021 11:11 AM EST Narrative Resulting Agency Comment Spec In Lab Jalen Sheffield MD CHEMISTRY ORDERAB LES Performing Organization Address [facility] Co de Phone Number [facility] [place] [address] documented in this encounter Visit Diagnoses Diagnosis 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
--- OUTSIDE RECORDS SUMMARY | 2024-05-30 18:27 | XMS_ITS | Encounter Summary ---
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 Penicillins Review of [...] by Denice Lester MD Resident in Dermatology [facility] Patient seen in conjunction with staff chief librarian extension department: Manuel Galeano MD Section of Dermatology [facility] * Manuel Galeano MD - 04/18/2018 9:00 [...] skin documented in this encounter Care Teams Flight Attendant Relationship Specialty Start Date End Date Kristina Zurita APRN [address] [place] [address] PCP - General Family Medicine 10/06/17 documented as of this encounter
--- OUTSIDE RECORDS SUMMARY | 2024-05-30 18:27 | XMS_ITS | Encounter Summary ---
Author Organization [facility] [place] [address] Care Team Providers Care Manufacturing Leader Name Role Phone Kristina Zurita APRN Primary Care Provider +1 -[phone] Encounter Details Date Type Department Care Team (Late st Contact Info) Description 07/04/2019 [place] [address] Ezequiel Bauer MD [facility] [place] [address] Social History Tobacco Use Types Packs/Day Years [...] deficiency documented in this encounter Care Teams Manufacturing Leader Relationship Specialty Start Date End Date Kristina Zurita APRN [address] [place] [address] PCP - General Family Medicine 10/06/17 documented as of this encounter
--- OUTSIDE RECORDS SUMMARY | 2024-05-30 18:27 | XMS_ITS | Encounter Summary ---
Author Organization [facility] [place] [address] Care Team Providers Care Social Media Marketing Specialist Name Role Phone Kristina Zurita APRN Primary Care Provider +1 -[phone] Encounter Details Date Type Department Care Team (Late st Contact Info) Description 07/26/2019 Notes Only Endocrinology at [facility] [phone] [facility] [address] Social History Tobacco Use Types Packs/Day Years [...] on filedocumented in this encounter Care Teams Social Media Marketing Specialist Relationship Specialty Start Date End Date Kristina Zurita APRN [address] [place] [address] PCP - General Family Medicine 10/06/17 documented as of this encounter
--- OUTSIDE RECORDS SUMMARY | 2024-05-30 18:27 | XMS_ITS | Encounter Summary ---
[place] [address] Care Team Providers Care Joint Cutter Machine Name Role Phone Kristina Zurita APRN Primary Care Provider +1 -[phone] Encounter Details Date Type Department Care Team (Late st Contact Info) Description 07/10/2019 Telephone [place] [phone] Majo Navarro RN Social History Tobacco Use [...] on filedocumented in this encounter Care Teams Joint Cutter Machine Relationship Specialty Start Date End Date Kristina Zurita APRN [address] [place] [address] PCP - General Family Medicine 10/06/17 documented as of this encounter
--- OUTSIDE RECORDS SUMMARY | 2024-05-30 18:27 | XMS_ITS | Encounter Summary ---
Author Organization [facility] [place] [address] Care Team Providers Care Transport Operations Inspector Name Role Phone Kristina Zurita APRN Primary Care Provider +1 -[phone] Encounter Details Date Type Department Care Team (Late st Contact Info) Description 07/26/2019 10:00 AM EDT Office [place] [address] Ezequiel Bauer MD [facility] [place] [address] Rowena's thyroiditis (Primary Dx); Vitamin D deficiency [...] Bauer Endocrinology, Diabetes and Metabolism Fellow Pager: [phone] * Jalen Sheffield MD - 07/26/2019 10:00 [...] T3 Total 100 75 - 170 ng/dL [facility] Blood specimen (specimen) 07/26/2019 10:06 AM EDT 07/26/2019 10:24 AM EDT Narrative Resulting Agency Comment Spec In Lab Jalen Sheffield MD CHEMISTRY ORDERAB LES Performing Organization Address City/[facility]/ZIP Co de Phone Number [facility] [place] [address] * T4, free (07/26/2019 10:06 AM EDT) Free T4 1.01 0.93 - 1.70 ng/dL [facility] Blood specimen (specimen) 07/26/2019 10:06 AM EDT 07/26/2019 10:24 AM EDT Narrative Resulting Agency Comment Spec In Lab Jalen Sheffield MD CHEMISTRY ORDERAB LES Performing Organization Address City/[facility]/ZIP Co de Phone Number [facility] [place] [address] * (ABNORMAL) TSH (07/26/2019 10:06 AM EDT) Thyroid Stimulating Hormone 4.60(H) 0.27 - 4.20 mcIU/mL [facility] Blood specimen (specimen) 07/26/2019 10:06 AM EDT 07/26/2019 10:24 AM EDT Narrative Resulting Agency Comment Spec In Lab Jalen Sheffield MD CHEMISTRY ORDERAB LES [facility] [place] [address] documented in this encounter Visit Diagnoses Diagnosis Rowena's thyroiditis- Primary Chronic lymphocytic thyroiditis Vitamin D deficiency Unspecified vitamin D deficiency documented in this encounter Care Teams Transport Operations Inspector Relationship Specialty Start Date End Date Kristina Zurita APRN [address] [place] [address] PCP - General Family Medicine 10/06/17 documented as of this encounter
--- OUTSIDE RECORDS SUMMARY | 2024-05-30 18:27 | XMS_ITS | Encounter Summary ---
Author Organization [facility] Address [address] [place] [address] Care Team Providers Care Welder Gas Tungsten Arc Name Role Phone Unavailable Primary Care Provider Unavailabl e Encounter Details Date Type Department Care Team (Late st Contact Info) Description 08/26/2020 Lab Requisition [facility] Pathology & Laboratory Medicine - [address] [address] Outr Resulting Lab, Provider Social History Tobacco [...] 97 - 169 ng/dL 08/26/2020 16:54 EST [facility] Blood VENOUS BLOOD / Unknown 08/25/2020 16:05 EST 08/26/2020 16:05 EST Provider Outr Resulting Lab CHEMISTRY & BLOOD GAS ORDERABLES [facility] [address] [place] [address] documented in this encounter Visit Diagnoses Not on filedocumented in this encounter
--- OUTSIDE RECORDS SUMMARY | 2024-05-30 18:27 | XMS_ITS | Continuity of Care Document ---
Author Organization [facility] Address [address] [place] [address] Assessment No assessment recorded. Plan of Treatment Reminders Order Date Submit Date Provider Last Modified By Organization Details Last Modified Time Details Appointments Acute 10 2023 03:42P M Not available Not available Not available Annual Wellness Exam 40 2024 11:50A M Not available Not available Not available Lab TSH + free T4, serum - 1Y 2023 024 [facility] (Registration ), [address] [place] [address], [place], [address], 05/17/2024 09:05:13 Referral None recorded. Procedures None recorded. Surgeries None recorded. Imaging None recorded. Medication Orders None recorded. Patient TargetsNo targets recorded. Patient InstructionsNo instructions recorded. Reason for Referral None Reported. Problems Name Problem SNOMED Code Status Onset Date Resolution Date Notes Provider Name and Address Organization Details Recorded Time Family history of malignan t neoplasm 533492935 Active 2017 [facility] [facility] 4 13:52:13 Allergic rhinitis 20507287 Active 2017 [facility] 4 13:51:44 Disorder of skin and/or subcutan eous tissue 73790130 Active 2017 [place] [facility] 4 13:52:04 Fatigue 12342493 Active 2018 [facility] 4 13:52:18 Hypothyr oidism 58444622 Active 2018 [facility] 4 13:52:22 Anxiety disorder 860194915 Active 2020 [facility] 4 13:51:52 Autoimmu ne thyroidi tis 27293821 Active 2022 [facility] 4 13:51:58 Adult health examinat ion Active 2022 [facility] 4 13:51:38 Scoliosi s deformit y of spine 800188364 Active 2015 [facility] 4 13:52:31 Family history of breast cancer 766209556 Active 2015 [facility] 49 [facility] 4 13:53:51 Mild intermit tent asthma 135549990 Active 2015 [facility] 4 13:52:26 Postpart um care Completed 201801/31/2023 Problem Code: Z39.2; Problem Code Type: ICD-10; Not Available [facility] 3 05:43:42 Common cold 88507334 Completed 201510/17/2016 Problem Code: J00; Problem Code Type: ICD-10; Not Available [facility] 3 05:43:42 General examinat ion of patient Completed 202001/31/2023 Problem Code: Z00.8; Problem Code Type: ICD-10; Not Available [facility] 3 05:43:42 Streptoc occal sore throat 38830723 Completed 202201/31/2023 Problem Code: J02.0; Problem Code Type: ICD-10; Not Available [facility] 3 05:43:42 Acute pharyngi tis 253015657 Completed 201610/21/2016 Problem Code: J02.9; Problem Code Type: ICD-10; Not Available [facility] 3 05:43:42 Thyrotox icosis 67581288 Completed 201806/21/2023 03/14/20 19 - Comments only - Melba Ayala FINANCIAL SERVICES SALES REPRESENTATIVE - Continue methimaz ole 5 mg daily. TSH, T4 and T3 drawn at today's visit. Encourag ed Yseenia to notify her pediatri john that she is on this medicati on because she is breast-f eeding. Endocrin ology visit in April. Problem Code: E05.90; Problem Code Type: ICD-10; Not Available [facility] 3 05:43:42 Acute pharyngi tis 443741238 Completed 202201/31/2023 Problem Code: J02.9; Problem Code Type: ICD-10; Not Available [facility] 3 05:43:42 Acute upper respirat ory infectio n 29889621 Completed 201601/02/2017 Problem Code: J06.9; Problem Code Type: ICD-10; Not Available [facility] 3 05:43:42 Sore throat 098087889 Active [address], [place], [address] [facility] 17:09:19 Problem Notes None recorded. Procedures Surgical History Date Name Laterality Status Provider Name and Address Organization Details Recorded Time 03/11/2024 Date of Last Pap Smear completed Madelaine Cedeño RN [facility], [facility] 03/12/2024 09:43:25 Imaging Results None recorded. Procedure Notes None recorded. Medical Equipment None Reported. Allergies Allergen ID Allergen Name Allergen Category Reaction Reaction Severity Criticality Documentation Date Start Date Code Code System Note Provider Name and Address Organization Details Recorded Time Medicinal product containin g penicilli n and acting as antibacte rial agent (product) medicatio n hives Not available Not available 08/04/20232015 78949 [address] [facility], [facility]. 16:08:31 Medications Name Sig Start Date Stop [...] Not Available Not Available Vitals Date Recorded Systolic blood pressure Diastolic blood pressure Provider Name and Address Organization Details Last Updated DateTime 05/16/2024 104 mm[Hg] 60 mm[Hg] JAC FORRESTER CMA [facility] 05/16/2024 14:58:20 Social History Question Answer Notes LastModified by Organizat ion Details LastModified Time Tobacco Smoking Status Never Smoker Madelaine Cedeño RN [facility], [facility] 02/07/2024 07:28:53 Would You Say That, In [...] Other Forms Of Tobacco Or Nicotine? No Information not available 02/07/2024 Sex: Female Functional [...] Recorded Time MMR 05/29/1998 completed Not Available [facility] 05:25:00 MMR 06/03/1992 completed Not Available [facility] 05:25:01 DTaP, unspecified formulation 1991 completed Not Available [facility] 08/04/2023 05:25:01 DTaP, unspecified formulation 05/08/1996 completed Not Available [facility] 08/04/2023 05:25:01 DTaP, unspecified formulation 1991 completed Not Available [facility] 08/04/2023 05:25:01 DTaP, unspecified formulation 06/12/1992 completed Not Available [facility] 08/04/2023 05:25:01 DTaP, unspecified formulation 1991 completed Not Available [facility] 08/04/2023 05:25:01 meningococcal ACWY, unspecified formulation 01/21/2009 completed Not Available [facility] 08/04/2023 05:25:01 Tdap 03/16/2016 completed Not Available [facility] 05:25:01 HPV, unspecified formulation 01/21/2009 completed Not Available [facility] 08/04/2023 05:25:01 Td(adult) unspecified formulation 05/04/2005 completed Not Available [facility] 08/04/2023 05:25:01 Influenza, split virus, quadrivalent, PF 10/25/2022 completed Not Available [facility] 08/04/2023 05:25:01 Influenza, split virus, quadrivalent, PF 09/22/2021 completed Not Available [facility] 08/04/2023 05:25:02 Hib, unspecified formulation 10/06/1998 completed Not Available [facility] 08/04/2023 05:25:02 Hib, unspecified formulation 1991 completed Not Available [facility] 08/04/2023 05:25:02 Hib, unspecified formulation 05/27/1999 completed Not Available [facility] 08/04/2023 05:25:02 Hib, unspecified formulation 1991 completed Not Available [facility] 08/04/2023 05:25:02 Hib, unspecified formulation 06/03/1992 completed Not Available [facility] 08/04/2023 05:25:02 Hib, unspecified formulation 07/29/1998 completed Not Available [facility] 08/04/2023 05:25:02 Hib, unspecified formulation 1991 completed Not Available [facility] 08/04/2023 05:25:02 COVID-19, mRNA, LNP-S, PF, 30 mcg/0.3 mL dose 10/06/2020 completed Not Available [facility] 08/04/2023 05:25:02 COVID-19, mRNA, LNP-S, PF, 30 mcg/0.3 mL dose 08/16/2021 completed Not Available [facility] 08/04/2023 05:25:02 COVID-19, mRNA, LNP-S, PF, 30 mcg/0.3 mL dose 09/15/2020 completed Not Available [facility] 08/04/2023 05:25:03 influenza, unspecified formulation 05/26/2016 completed Not Available [facility] 08/04/2023 05:25:03 influenza, unspecified formulation 07/10/2017 completed Not Available [facility] 08/04/2023 05:25:03 polio, unspecified formulation 1991 completed Not Available [facility] 08/04/2023 05:25:03 polio, unspecified formulation 05/08/1996 completed Not Available [facility] 08/04/2023 05:25:03 polio, unspecified formulation 1991 completed Not Available [facility] 08/04/2023 05:25:03 polio, unspecified formulation 08/12/1992 completed Not Available [facility] 08/04/2023 05:25:03 Past Encounters Encounter ID Performer Location Encounter Start Date Encounter Closed Date Diagnosis/Indication Diagnosis SNOMED-CT Code Diagnosis ICD10 Code [id number] JAC FORRESTER [address] [address] 05/16/2024 14:51:28 05/16/2024 15:00:53 [facility] [id number] E03.9 Health Concerns Section Related Observation LastModified by Organization Detai ls LastModified Time None Recorded Concern Status LastModified by Organization Details LastModified Time None Recorded Payers Encounter Date Sequence Insurance Name Policy Number Policy Beaulieu Covered Member ID Beaulieu Member ID Guarantor Name 05/16/2024 1 [place] [employer] [place] Yesenia Aguilar [id number] Yesenia Aguilar OBGyn Episode No OBEpisode recorded.
--- OUTSIDE RECORDS SUMMARY | 2024-05-30 18:27 | XMS_ITS | Encounter Summary ---
[place] [address] Care Team Providers Care Botany Teacher Name Role Phone Kristina Zurita APRN Primary Care Provider [phone] -[phone] Encounter Details Date Type Department Care Team (Late st Contact Info) Description 08/30/2021 Orders [place] [address] Gisell Lai MD [facility] [place] [address] Rowena's thyroiditis Social History Tobacco Use Types [...] thyroiditis documented in this encounter Care Teams Botany Teacher Relationship Specialty Start Date End Date Kristina Zurita APRN [address] [place] [address] PCP - General Family Medicine 10/06/17 documented as of this encounter
--- OUTSIDE RECORDS SUMMARY | 2024-05-30 18:27 | XMS_ITS | Encounter Summary ---
[place] [address] Care Team Providers Care Community Affairs Manager Name Role Phone Kristina Zurita APRN Primary Care Provider +1 -[phone] Encounter Details Date Type Department Care Team (Late st Contact Info) Description 10/28/2022 Orders [place] [address] Gisell Lai MD [facility] [place] [address] Rowena's thyroiditis Social History Tobacco Use Types [...] thyroiditis documented in this encounter Care Teams Community Affairs Manager Relationship Specialty Start Date End Date Kristina Zurita APRN [address] [place] [address] PCP - General Family Medicine 10/06/17 documented as of this encounter
--- OUTSIDE RECORDS SUMMARY | 2024-05-30 18:27 | XMS_ITS | Encounter Summary ---
Author Organization [facility] Address [address] [place] [address] Care Team Providers Care Complaints Coordinator Name Role Phone Unavailable Primary Care Provider Unavailabl e Encounter Details Date Type Department Care Team (Late st Contact Info) Description 02/26/2020 Lab Requisition [facility] Pathology & Laboratory Medicine - [facility] [address] [place] [address] Outr Resulting Lab, Provider Social History Tobacco [...] 97 - 169 ng/dL 02/26/2020 18:00 EDT [facility] Blood VENOUS BLOOD / Unknown 02/25/2020 16:20 EDT 02/26/2020 17:18 EDT Provider Outr Resulting Lab CHEMISTRY & BLOOD GAS ORDERABLES [facility] [address] [place] [address] documented in this encounter Visit Diagnoses Not on filedocumented in this encounter
--- OUTSIDE RECORDS SUMMARY | 2024-05-30 18:27 | XMS_ITS | Encounter Summary ---
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 * Katya Barfield MD - 02/07/2020 9:30 AM EDT I discussed this patient with Dr. Bauer. I reviewed the gavin portions of the history, and reviewed pertinent lab data. I was involved in all medical decision making and agree with this plan. ?? 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
== END 2024-05-30 18:19 | disposition home or self-care (01) ==
LOC: LBN 18:18
PROVIDERS: PCP Nurse Practitioner Family; Visit Provider Physician Assistant Medical
DX: J02.9 Acute pharyngitis, unspecified (principal)
CPT/HCPCS: 87070